=== PATIENT | male | born 1940 | race Caucasian/White ===

== ENCOUNTER 2019-08-07 12:50 | Day surgery (SDC) | payer MEDICARE, BC ==
[2019-08-06 14:28] VITALS: BMI 26.0
[~2019-08-07 12:50] MED LIST: EPINEPHrine 0.3 MG in Ophthalmic Irrigation Solution 500 ML IV SCH
[2019-08-07] MEDS ORDERED: Cyclopentolate 1% Opth Drop 2 ML BOT ONE (13:16)
[2019-08-07] MEDS ORDERED: Phenylephrine 2.5% Ophth Soln 5 ML BOT ONE (13:16)
--- NOTE | 2019-08-08 01:03 | OP ---
DATE OF PROCEDURE: 08/07/2019 PREOPERATIVE DIAGNOSIS: Dislocated intraocular lens, right eye. POSTOPERATIVE DIAGNOSIS: Dislocated intraocular lens, right eye. PROCEDURE: Intraocular lens repositioning, pars plana vitrectomy, membrane peel, right eye. ANESTHESIA: General endotracheal anesthesia. COMPLICATIONS: None. DESCRIPTION OF PROCEDURE: The patient was identified in the preoperative holding area. Appropriate informed consent for the planned surgical procedure on the right eye had been obtained. The patient was transported to the operative suite. Appropriate cardiopulmonary monitoring was established. Local anesthesia obtained using retrobulbar modified Van Lint lid block using 50:50 mixture of 4% lidocaine and 0.75% bupivacaine. The patient was prepped and draped in usual sterile manner for ophthalmic surgery of the right eye. Lid speculum was placed in the right eye. Infusion line was placed inferotemporally. Intra-ocular lens was positioned forward and captured on toned Prolene sutures at the 1 o'clock and 7 o'clock positions. This fixated the lens anteriorly. Pars plana vitrectomy was performed removing traction from the lens and the anterior vitreous. Prophylactic indirect laser was placed for a total of 169 spots. No holes, breaks, or tears were identified. Trocars were removed. The eye was noted to retain pressure well. Retrobulbar Kenalog and subconjunctival Ancef were placed. Antibiotic ointment was placed. Eye was patched and shielded. The patient awakened and taken to postoperative recovery unit in good condition having suffered no immediate perioperative complications. The patient was instructed to keep patch and shield on. Followup appointment with Dr. Curry. Job ID: [id number]
== END 2019-08-07 15:42 | disposition home or self-care (01) ==
LOC: SDC 12:50
PROVIDERS: ATTEND Ophthalmology Retina Specialist
PROC: 08SJ3ZZ Reposition Right Lens, Percutaneous Approach (ICD-10-PCS; principal; 2019-08-07)
DX: H27.121 Anterior dislocation of lens, right eye (principal)
CPT/HCPCS: J0171

== ENCOUNTER 2019-09-01 12:22 | Outpatient (CLI) | payer MEDICARE, BC ==
--- NOTE | 2019-09-01 16:48 | ULT ---
RIGHT LOWER EXTREMITY VENOUS DUPLEX ULTRASOUND WITH COLOR AND SPECTRAL DOPPLER IMAGING: History: Right leg pain. Comparison: 01-22-12 FINDINGS: Exam performed from groin to ankle including visualized greater saphenous, common femoral, superficia l femoral, profunda femoral, popliteal, trifurcation and posterior tibial vein regions. There is evidence for intraluminal thrombus and lack of compressibility and flow in the distal superf icial femoral vein, popliteal vein, and posterior tibial vein, evidence for deep venous thrombosis. T here is a somewhat complicated appearing somewhat thick walled fluid collection involving the distal medial thigh measuring 4.2 x 5.8 cm. In addition, there is a second complicated appearing fluid colle ction medial to the knee which measures approximately 3.3 x 5.6 cm. The etiology of these fluid colle ctions is not determined from this study. These could represent ganglion cysts or post-traumatic flui d collections. Consider follow up knee MRI for further assessment in this regard. IMPRESSION: 1. Evidence for DVT involving the right lower extremity including the distal superficial femoral vein , popliteal vein, and posterior tibial vein. 2. Two somewhat complicated appearing fluid collections, one involving the medial distal thigh and th e other one the medial knee, of uncertain etiology or significance as above. Follow up non-emergent k nee MRI in this regard is suggested. This could be performed on a with and without contrast basis for more definitive assessment of these two multiloculated complicated appearing cystic masses. 3. Findings were discussed with Dr. Cazares's nurse, Patito by Ashley Miller, the ultrasound technolo rust at 1:17 p.m. Code CR POS: [id number]
== END 2019-09-01 12:23 | disposition home or self-care (01) ==
LOC: ULT 12:22
PROVIDERS: ATTEND Internal Medicine
DX: I80.8 Phlebitis and thrombophlebitis of other sites (principal); I87.2 Venous insufficiency (chronic) (peripheral); I82.401 Acute embolism and thrombosis of unspecified deep veins of right lower extremity

== ENCOUNTER 2019-09-17 12:27 | Outpatient (CLI) | payer MEDICARE, BC ==
--- NOTE | 2019-09-17 14:10 | MRI ---
Exam: Right knee MRI with and without IV contrast: HISTORY: Abnormality of right knee, follow-up ultrasound, right knee pain There appear to be several very large multiloculated fluid collections involving the knee, incomplete ly visualized since the cranial-most extension of these abnormal fluid collections are not completely seen, they extend well up into the thigh. The more posterior collection measures approxima tely 6.3 x 9.8 cm in AP and transverse dimension and the more medial collection measures approximately 3.5 x 4.6 cm in transverse dimensions the craniocaudal dimension of the more posterior loculated fluid collection incompletely seen but measures at least 12.7 cm in craniocaudal dimension and the more anterior medial collection also incompletely seen but measures at least 7.9 cm in craniocaudal dimension. There is no evidence for solid enhancing masses. There is evidence for intraluminal thrombus within the portal vein evidence for deep venous thrombosis. 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 IMPRESSION: Evidence for intraluminal thrombus involving the popliteal vein evidence for deep venous thrombosis w hich was documented on the previous venous duplex ultrasound examination 09/01/2019 Very large multiloculated fluid collections incompletely seen in the more cranial aspect on this eval uation, they extend well up in the lower thigh. Etiology of these is uncertain, conceivably they could be related to prior knee replacement. There is no evidence for associated solid enhancing mass.
== END 2019-09-17 12:28 | disposition home or self-care (01) ==
LOC: MRI 12:27
PROVIDERS: ATTEND Internal Medicine
DX: I82.431 Acute embolism and thrombosis of right popliteal vein (principal); R93.6 Abnormal findings on diagnostic imaging of limbs; M71.21 Synovial cyst of popliteal space [Baker], right knee; M79.604 Pain in right leg

== ENCOUNTER 2019-10-14 12:09 | Outpatient (CLI) | payer MEDICARE, BC ==
[2019-10-14] MEDS ORDERED: Iopamidol 370 76% 100 ML VIAL ONE (12:57)
--- NOTE | 2019-10-14 13:03 | CT ---
CT ABDOMEN AND PELVIS WITH IV CONTRAST 10/14/2019 CLINICAL INFORMATION: Right lower extremity swelling for one month. Increase in inguinal lymphadenopathy COMPARISON: CTA chest and abdomen on 01/21/2012. Technique: Multiple contiguous axial CT images are obtained through the abdomen and pelvis with IV contrast. Cor onal reformatted images are provided. FINDINGS: Lower Chest: Minimal linear bibasilar atelectasis versus scarring is present. Vessels: Vascular calcifications are seen in the abdominal aorta and involving the iliac arteries. Abdomen: Portal vein:Patent Gallbladder: Within normal limits for CT imaging. Liver: within normal limits. Spleen: within normal limits. Pancreas: Mild atrophy but otherwise normal CT appearance. Adrenals: A small 1 cm fat density lesion is seen in the right adrenal gland also present on prior st udy probably due to small myolipoma. The left adrenal gland has a normal CT appearance. Kidneys: within normal limits. Bowel: Thickening involving the ascending colon. However, the colon is decompressed which may account for this finding. Appendix: The appendix is visualized and normal in caliber. Peritoneum: No ascites or free air; no fluid collection. Mesentery and Retroperitoneum: No enlarged mesenteric or retroperitoneal lymph nodes. Abdominal Wall: A fat-containing right inguinal canal is present. Small bilateral hydroceles are visu alized. Pelvis: Reproductive Organs: No pelvic masses. Pelvis: No lymphadenopathy is seen. Specifically, there is no mass or lymphadenopathy seen in the ing uinal regions bilaterally. Bladder: Decompressed but otherwise grossly within normal limits. Bones: Multilevel degenerative changes in the lumbar spine similar to prior exam. IMPRESSION: 1. Fat-containing right inguinal canal suggestive of a fat-containing right inguinal hernia. There is no lymphadenopathy seen in either inguinal region and no mass is seen. 2. Small bilateral hydroceles. 3. Appearance of thickening of the ascending colon probably attributable to incomplete distention. Ho wever colonoscopy would be more sensitive for evaluation of the colon. 4. Small right adrenal myelolipoma.
--- NOTE | 2019-10-14 13:43 | ULT ---
RIGHT LOWER EXTREMITY DOPPLER VENOUS ULTRASOUND PROVIDED CLINICAL HISTORY: History of right lower extremity DVT. TECHNIQUE: Grayscale and color Doppler sonography with spectral analysis was performed of the right common femor al, femoral, popliteal, posterior tibial, greater saphenous and profunda femoral veins. FINDINGS: Comparison is made with a prior right lower extremity DVT ultrasound dated 09/01/2019. There is persi stent occlusive thrombus within the right popliteal vein. The posterior tibial vein and distal superficial femoral vein appear patent now. There is normal compression, flow and augmentation seen w ithin the right common femoral vein, right greater saphenous vein and right profunda femoral vein. The complex fluid collection seen within the distal right thigh posterior to the knee did not appear appreciably changed from the comparison exam. These are not fully assessed. IMPRESSION: 1. Persistent occlusive thrombus within the right popliteal vein. Recanalization of the distal right superficial femoral vein and posterior tibial vein. 2. Persistent large fluid collections within the distal right thigh and posterior knee. These were i ncompletely included in the [id number] on an MR examination dated 09/17/2019. As a conservative measure would recommend a followup MRI of the right leg with and without contrast to evaluate the ful l extent of these fluid collections. Transcribed Date/Time: 10/14/2019 1:47 PM
== END 2019-10-14 12:10 | disposition home or self-care (01) ==
LOC: CT 12:09
PROVIDERS: ATTEND Internal Medicine
DX: I87.2 Venous insufficiency (chronic) (peripheral) (principal); R59.0 Localized enlarged lymph nodes; N43.3 Hydrocele, unspecified; D17.71 Benign lipomatous neoplasm of kidney; I82.431 Acute embolism and thrombosis of right popliteal vein; I82.411 Acute embolism and thrombosis of right femoral vein; I82.441 Acute embolism and thrombosis of right tibial vein; Z86.718 Personal history of other venous thrombosis and embolism
CPT/HCPCS: 36415; 74177; 80053; 85007; 85027; Q9967

== ENCOUNTER 2023-09-04 02:22 | Inpatient (IN) | payer MEDICARE, BC ==
[2023-09-04 04:56] VITALS: BMI 207483.7
[2023-09-04] MEDS ORDERED: Ondansetron PF 4 MG/2 ML Vial IVP PRN (05:01)
[2023-09-04] MEDS ORDERED: Ondansetron ODT 4 MG TAB PO PRN (05:01)
[2023-09-04] MEDS ORDERED: Acetaminophen 325 MG TAB PO PRN (05:01)
[2023-09-04] MEDS ORDERED: Acetaminophen 650 MG Suppository PR PRN (05:01)
[2023-09-04] MEDS ORDERED: Lorazepam 2 MG/ML VIAL SLOW IVP PRN (05:03)
[2023-09-04 05:46] LABS: Hematocrit 34.2 % (42.0-52.0); Hemoglobin 11.7 g/dL (14.0-18.0); Manual Diff?? YES; Mean Corpuscular HGB CONC 34.2 g/dL (32.0-36.0); Mean Corpuscular Hemoglobin 32.1 pg (27.0-31.0); Mean Platelet Volume 11.1 fL (7.4-10.4); Platelet Count 114 10x3/uL (130-400); RBC Distribution Width 14.6 % (11.5-14.5); Red Blood Cell (RBC) Count 3.64 mill/uL (4.70-6.10); White Blood Cell (WBC) Count 3.8 10x3/uL (4.8-10.8)
[2023-09-04 05:51] LABS: Delete Auto Diff?? YES
[2023-09-04 06:06] LABS: Anion Gap 13 mmol/L (10-20); BUN (Urea Nitrogen) 19 mg/dL (8.4-25.7); Calc. Creatinine Clearance 71 mL/min (70-130); Carbon Dioxide 29 mmol/L (23-31); Chloride 102 mmol/L (98-107); Estimated GFR 89; Glucose 90 mg/dL (83-110); Potassium 3.4 mmol/L (3.5-5.1); Sodium 141 mmol/L (136-145)
[2023-09-04 06:09] LABS: Band 4 % (5-11); CellaVision Operator ID LAB.CLH1; Hypochromia SLIGHT = 6-15 cells HPF (0-5); Lymphocytes 27 % (21-51); Monocytes 17 % (0-10); Neutrophil 49 % (42-75); Platelet Adequacy Comment Platelets Decreased; Polychromasia SLIGHT = 2-3 cells HPF (0-2); Reactive Lymphocytes 3 % (0-10); Total Cell Count 100
[2023-09-04] MEDS ORDERED: Electrolyte Replacement Protocol 1 EACH FS SCH (06:15)
[2023-09-04] MEDS ORDERED: Potassium Chloride 20 MEQ TAB PO SCH (06:30)
[2023-09-04] MEDS ORDERED: Dextrose 5% in Water 1,000 ML IV PRN (06:54)
[2023-09-04] MEDS ORDERED: Dextrose 50% Abboject 50 ML SYRINGE SLOW IVP PRN (06:54)
[2023-09-04] MEDS ORDERED: Glucagon 1 MG/ML KIT IM PRN (06:54)
[2023-09-04] MEDS ORDERED: HumaLOG 300 UNITS/3 ML VIAL SC PRN (06:54)
[2023-09-04] MEDS ORDERED: Magnesium 2 GM/50 ML(in water) 2 GM in Premix Bag 1 BAG IVPB SCH (08:00)
[2023-09-04] MEDS: Aspirin 81 mg Enteric Coated Tablet PO SCH (08:40)
[2023-09-04] MEDS: Tamsulosin HCl 0.4 MG CAP PO SCH (08:40)
[2023-09-04] MEDS: Carvedilol 6.25 MG TAB PO SCH ×2 (08:40→20:47)
[2023-09-04] MEDS: metFORMIN 500 MG TAB PO SCH ×2 (08:40→20:47)
[2023-09-04] MEDS: Amiodarone 200 MG TAB PO SCH (08:41)
[2023-09-04] MEDS ORDERED: Divalproex Sodium 250 MG ER.TAB PO SCH (11:15)
[2023-09-04 13:26] LABS: Potassium 3.7 mmol/L (3.5-5.1)
[2023-09-04] MEDS ORDERED: HYDROcodone/Acetaminophen 10/325 mg Tablet PO PRN (17:01)
[2023-09-04] MEDS: Artificial Tear Sol 15 ML BOT EA EYE PRN (17:54)
[2023-09-04] MEDS ORDERED: cefTRIAXone\\ROCEPHIN 1 GM in Sodium Chloride 0.9% 100 ML IVPB SCH (18:30)
[2023-09-04] MEDS: Atorvastatin Calcium 20 MG TAB PO SCH (20:47)
[2023-09-04] MEDS: Pregabalin 50 MG CAP PO SCH (20:47)
[2023-09-05 07:09] LABS: Magnesium 1.4 mg/dL (1.6-2.6)
[2023-09-05 07:40] LABS: #Monocytes 0.8 thou/uL (0.11-0.59); #Neutrophils 1.9 thou/uL (1.40-6.50); %Basophils 0.2 % (0.0-1.0); %Eosinophils 0.7 % (0.0-10.0); %Lymphocytes 33.7 % (21.0-51.0); %Neutrophils 45.7 % (42.0-75.0); Hematocrit 36.8 % (42.0-52.0); Hemoglobin 12.4 g/dL (14.0-18.0); Mean Corpuscular HGB CONC 33.7 g/dL (32.0-36.0); Mean Corpuscular Hemoglobin 31.5 pg (27.0-31.0); Mean Corpuscular Volume 93.4 fl (78.0-98.0); Mean Platelet Volume 11.2 fL (7.4-10.4); Platelet Count 116 10x3/uL (130-400); RBC Distribution Width 14.6 % (11.5-14.5); Red Blood Cell (RBC) Count 3.94 mill/uL (4.70-6.10); White Blood Cell (WBC) Count 4.1 10x3/uL (4.8-10.8)
[2023-09-05 07:56] LABS: ALT (SGPT) 29 U/L (8-55); AST (SGOT) 41 U/L (5-34); Alkaline Phosphatase 102 U/L (40-110); Anion Gap 18 mmol/L (10-20); BUN (Urea Nitrogen) 14 mg/dL (8.4-25.7); Bilirubin, Total 0.3 mg/dL (0.2-1.2); Calc. Creatinine Clearance 67 mL/min (70-130); Calcium 9.5 mg/dL (7.8-10.44); Carbon Dioxide 25 mmol/L (23-31); Chloride 102 mmol/L (98-107); Estimated GFR 87; Globulin 2.5 g/dL (2.4-3.5); Glucose 142 mg/dL (83-110); Potassium 3.6 mmol/L (3.5-5.1); Protein, Total 6.5 g/dL (5.8-8.1); Sodium 141 mmol/L (136-145)
[2023-09-05] MEDS ORDERED: Magnesium Sulfate In Water 4 GM in Premix Bag 1 BAG IVPB SCH (09:00)
[2023-09-05] MEDS: Carvedilol 6.25 MG TAB PO SCH ×2 (09:40→20:34)
[2023-09-05] MEDS: Tamsulosin HCl 0.4 MG CAP PO SCH (09:40)
[2023-09-05] MEDS: metFORMIN 500 MG TAB PO SCH ×2 (09:40→20:26)
[2023-09-05] MEDS: Aspirin 81 mg Enteric Coated Tablet PO SCH (09:40)
[2023-09-05] MEDS: Amiodarone 200 MG TAB PO SCH (09:41)
[2023-09-05] MEDS: cefTRIAXone\\ROCEPHIN 1 GM in Sodium Chloride 0.9% 100 ML IVPB SCH (17:53)
[2023-09-05] MEDS: Atorvastatin Calcium 20 MG TAB PO SCH (20:27)
[2023-09-05] MEDS: Divalproex Sodium 250 MG ER.TAB PO SCH (20:27)
[2023-09-05] MEDS: Pregabalin 50 MG CAP PO SCH (20:27)
[2023-09-06 09:13] LABS: Magnesium 1.3 mg/dL (1.6-2.6)
[2023-09-06] MEDS: Carvedilol 6.25 MG TAB PO SCH ×2 (10:34→21:23)
[2023-09-06] MEDS: Tamsulosin HCl 0.4 MG CAP PO SCH (10:34)
[2023-09-06] MEDS: Amiodarone 200 MG TAB PO SCH (10:36)
[2023-09-06] MEDS: metFORMIN 500 MG TAB PO SCH ×2 (10:36→21:24)
[2023-09-06] MEDS: Aspirin 81 mg Enteric Coated Tablet PO SCH (10:36)
[2023-09-06] MEDS ORDERED: Magnesium Sulfate In Water 4 GM in Premix Bag 1 BAG IVPB SCH (11:00)
[2023-09-06] MEDS: cefTRIAXone\\ROCEPHIN 1 GM in Sodium Chloride 0.9% 100 ML IVPB SCH (17:56)
[2023-09-06] MEDS: Divalproex Sodium 250 MG ER.TAB PO SCH (21:21)
[2023-09-06] MEDS: Atorvastatin Calcium 20 MG TAB PO SCH (21:23)
[2023-09-06] MEDS: Senokot S 8.6-50 MG TAB PO SCH (21:23)
[2023-09-06] MEDS: Pregabalin 50 MG CAP PO SCH (22:35)
[2023-09-07 04:34] LABS: Magnesium 1.8 mg/dL (1.6-2.6)
[2023-09-07] MEDS ORDERED: Vancomycin 1 GM in Premix Bag 1 BAG IVPB SCH (05:00)
[2023-09-07] MEDS ORDERED: Magnesium 2 GM/50 ML(in water) 2 GM in Premix Bag 1 BAG IVPB SCH (08:00)
[2023-09-07] MEDS ORDERED: Polyethylene Glycol 3350 17 GM Packet PO SCH (09:00)
[2023-09-07] MEDS: Aspirin 81 mg Enteric Coated Tablet PO SCH (09:28)
[2023-09-07] MEDS: metFORMIN 500 MG TAB PO SCH (09:28)
[2023-09-07] MEDS: Carvedilol 6.25 MG TAB PO SCH (09:28)
[2023-09-07] MEDS: Tamsulosin HCl 0.4 MG CAP PO SCH (09:28)
[2023-09-07] MEDS: Senokot S 8.6-50 MG TAB PO SCH (09:28)
[2023-09-07] MEDS: Amiodarone 200 MG TAB PO SCH (09:29)
[2023-09-07] MEDS: Artificial Tear Sol 15 ML BOT EA EYE PRN (09:29)
[2023-09-07 11:37] VITALS: BP 176/94; TEMP 97.8
== END 2023-09-07 16:00 | disposition home or self-care (01) | DRG 690 ==
LOC: 2SE 02:52 → OBSVTOIN 09-05 16:20
PROVIDERS: ADMIT Student in an Organized Health Care Education/Training Program; ATTEND Internal Medicine
PROC: 4A00X4Z Measurement of Central Nervous Electrical Activity, External Approach (ICD-10-PCS; principal; 2023-09-04)
DX: N39.0 Urinary tract infection, site not specified (principal); G93.40 Encephalopathy, unspecified; I25.10 Atherosclerotic heart disease of native coronary artery without angina pectoris; E78.5 Hyperlipidemia, unspecified; I10 Essential (primary) hypertension; F32.A Depression, unspecified; Z98.890 Other specified postprocedural states; Z88.1 Allergy status to other antibiotic agents; Z88.5 Allergy status to narcotic agent; Z79.899 Other long term (current) drug therapy; Z79.82 Long term (current) use of aspirin; Z79.84 Long term (current) use of oral hypoglycemic drugs; R56.9 Unspecified convulsions; Z90.89 Acquired absence of other organs; Z82.49 Family history of ischemic heart disease and other diseases of the circulatory system
CPT/HCPCS: 36415; 36416; 70450; 70551; 71045; 80048; 80053; 80164; 80306; 81001; 82550; 83735; 84484; 85025; 87086; 93005; 93306; 93880; 95711; 95819; 95957; 96374; 96375; C1785; C1898; G0378; J0696; J3370-JW; J3475; J3490

== ENCOUNTER 2023-09-09 03:42 | Inpatient (IN) | payer MEDICARE, BC ==
[2023-09-09 04:38] LABS: #Monocytes 3.2 thou/uL (0.11-0.59); #Neutrophils 12.7 thou/uL (1.40-6.50); %Basophils 0.1 % (0.0-1.0); %Eosinophils 0.1 % (0.0-10.0); %Monocytes 19.1 % (0.0-10.0); %Neutrophils 74.9 % (42.0-75.0); Hematocrit 39.9 % (42.0-52.0); Hemoglobin 13.7 g/dL (14.0-18.0); Mean Corpuscular HGB CONC 34.3 g/dL (32.0-36.0); Mean Corpuscular Hemoglobin 32.2 pg (27.0-31.0); Mean Corpuscular Volume 93.9 fl (78.0-98.0); Mean Platelet Volume 11.4 fL (7.4-10.4); RBC Distribution Width 14.6 % (11.5-14.5); Red Blood Cell (RBC) Count 4.25 mill/uL (4.70-6.10)
[2023-09-09] MEDS ORDERED: Acetaminophen 325 MG TAB ONE (04:51)
[2023-09-09 05:09] LABS: ALT (SGPT) 45 U/L (8-55); AST (SGOT) 66 U/L (5-34); Albumin 4.2 g/dL (3.4-4.8); Alkaline Phosphatase 118 U/L (40-110); Anion Gap 17 mmol/L (10-20); BUN (Urea Nitrogen) 15 mg/dL (8.4-25.7); Bilirubin, Total 0.6 mg/dL (0.2-1.2); Calc. Creatinine Clearance 0 mL/min (70-130); Carbon Dioxide 24 mmol/L (23-31); Chloride 102 mmol/L (98-107); Estimated GFR 85; Globulin 2.7 g/dL (2.4-3.5); Glucose 156 mg/dL (83-110); Potassium 4.5 mmol/L (3.5-5.1); Protein, Total 6.9 g/dL (5.8-8.1); Sodium 138 mmol/L (136-145)
[2023-09-09 05:30] LABS: Platelet Count 134 10x3/uL (130-400)
[2023-09-09] MEDS ORDERED: Vancomycin 1 GM/200 ML (FROZEN) BAG ONE (05:32)
[2023-09-09] MEDS ORDERED: Meropenem 1 GM in Sodium Chloride 0.9% 100 ML IVPB SCH (06:00)
[2023-09-09 06:32] LABS: Bacteria/HPF None Seen HPF (None Seen); Bilirubin Negative (Negative); Blood, Urine Negative (Negative); CAUTI Indications for Culture Alt mental st,lethar; Clarity Clear (Clear); Glucose, Urine (Dipstick) Normal (Negative); Ketone, Urine Negative (Negative); Leukocyte Negative Leu/uL (Negative); Nitrite Negative (Negative); Protein, Urine (Dipstick) Negative (Neg-Trace); Specific Gravity, Urine 1.026 (1.002-1.036); Squamous Epithelial 0-3 HPF (0-3); Urobilinogen Normal mg/dL (Less than 2); WBC/HPF 0-3 HPF (0-3); pH, Urine 6.5 (5.0-9.0)
[2023-09-09 06:35] LABS: Urine Culture Reflex No No
[2023-09-09 06:38] LABS: SARS-CoV-2 NAA Rapid Test Not Detected (NotDetected)
[2023-09-09 07:50] LABS: Lactic Acid 1.9 mmol/L (0.5-2.2)
[2023-09-09] MEDS ORDERED: Iopamidol 370 76% 100 ML VIAL ONE (08:54)
[2023-09-09 09:07] VITALS: BMI 21.5
[2023-09-09] MEDS ORDERED: Electrolyte Replacement Protocol 1 EACH FS SCH (10:15)
[2023-09-09] MEDS ORDERED: Acetaminophen 325 MG TAB PO PRN (10:16)
[2023-09-09] MEDS ORDERED: Acetaminophen 650 MG Suppository PR PRN (10:16)
[2023-09-09] MEDS ORDERED: Glucagon 1 MG/ML KIT IM PRN (10:18)
[2023-09-09] MEDS ORDERED: Dextrose 50% Abboject 50 ML SYRINGE SLOW IVP PRN (10:18)
[2023-09-09] MEDS ORDERED: Dextrose 5% in Water 1,000 ML IV PRN (10:18)
[2023-09-09] MEDS ORDERED: HumaLOG 300 UNITS/3 ML VIAL SC PRN ×2 (10:18)
[2023-09-09] MEDS ORDERED: VANCOMYCIN IVPB PRN (10:34)
[2023-09-09] MEDS ORDERED: Electrolyte Replacement Protocol FS PRN (10:45)
[2023-09-09] MEDS: Meropenem 1 GM in Sodium Chloride 0.9% 100 ML IVPB SCH ×2 (14:47→21:54)
[2023-09-09] MEDS: Vancomycin HCl 750 MG in Sodium Chloride 0.9% 250 ML 250 ML IVPB SCH ×3 (18:55→22:23)
[2023-09-09] MEDS ORDERED: Vancomycin 1 GM in Sodium Chloride 0.9% 250 ML 300 ML IVPB SCH (21:00)
[2023-09-09] MEDS: HYDROcodone/Acetaminophen 10/325 mg Tablet PO PRN (21:52)
[2023-09-09] MEDS: Atorvastatin Calcium 20 MG TAB PO SCH (21:53)
[2023-09-09] MEDS: Pregabalin 50 MG CAP PO SCH (22:14)
[2023-09-10 04:30] LABS: Hematocrit 33.6 % (42.0-52.0); Hemoglobin 11.5 g/dL (14.0-18.0); Manual Diff?? YES; Mean Corpuscular HGB CONC 34.2 g/dL (32.0-36.0); Mean Corpuscular Hemoglobin 32.2 pg (27.0-31.0); Mean Corpuscular Volume 94.1 fl (78.0-98.0); Mean Platelet Volume 11.6 fL (7.4-10.4); Platelet Count 92 10x3/uL (130-400); RBC Distribution Width 14.9 % (11.5-14.5); Red Blood Cell (RBC) Count 3.57 mill/uL (4.70-6.10); White Blood Cell (WBC) Count 6.7 10x3/uL (4.8-10.8)
[2023-09-10 04:31] LABS: Delete Auto Diff?? YES
[2023-09-10 05:00] LABS: ALT (SGPT) 46 U/L (8-55); AST (SGOT) 63 U/L (5-34); Albumin 3.6 g/dL (3.4-4.8); Alkaline Phosphatase 99 U/L (40-110); Anion Gap 13 mmol/L (10-20); BUN (Urea Nitrogen) 15 mg/dL (8.4-25.7); Bilirubin, Total 0.3 mg/dL (0.2-1.2); Calc. Creatinine Clearance 74 mL/min (70-130); Calcium 8.7 mg/dL (7.8-10.44); Carbon Dioxide 26 mmol/L (23-31); Chloride 104 mmol/L (98-107); Estimated GFR 89; Globulin 2.3 g/dL (2.4-3.5); Glucose 98 mg/dL (83-110); Magnesium 1.6 mg/dL (1.6-2.6); Potassium 3.5 mmol/L (3.5-5.1); Protein, Total 5.9 g/dL (5.8-8.1); Sodium 139 mmol/L (136-145)
[2023-09-10 05:02] LABS: Band 1 % (5-11); CellaVision Operator ID lab.abc; Lymphocytes 10 % (21-51); Monocytes 12 % (0-10); Neutrophil 77 % (42-75); Platelet Adequacy Comment Platelets Decreased; Polychromasia SLIGHT = 2-3 cells HPF (0-2); RBC Morphology Within Normal Limits; Smudge Cells 6.9 %; Total Cell Count 101
[2023-09-10] MEDS: Meropenem 1 GM in Sodium Chloride 0.9% 100 ML IVPB SCH ×3 (05:55→22:36)
[2023-09-10] MEDS ORDERED: Potassium Chloride 20 MEQ TAB PO SCH (08:00)
[2023-09-10] MEDS ORDERED: Carvedilol 6.25 MG TAB PO SCH (08:00)
[2023-09-10] MEDS ORDERED: Magnesium 2 GM/50 ML(in water) 2 GM in Premix 1 BAG IVPB SCH (08:00)
[2023-09-10] MEDS ORDERED: FLU VACC QS2023(65UP)/MF59C/PF 60 MCG/0.5 ML SYRINGE IM ONE (09:00)
[2023-09-10] MEDS: Amiodarone 200 MG TAB PO SCH (09:26)
[2023-09-10] MEDS: Tamsulosin HCl 0.4 MG CAP PO SCH (09:27)
[2023-09-10] MEDS: Venlafaxine HCl XR 150 MG CAP PO SCH (09:27)
[2023-09-10] MEDS: BuPROPion XL 150 MG ER.TAB PO SCH (09:27)
[2023-09-10] MEDS: Aspirin 81 mg Enteric Coated Tablet PO SCH (09:27)
[2023-09-10] MEDS: Losartan 25 MG TAB PO SCH (09:27)
[2023-09-10] MEDS: Vancomycin HCl 750 MG in Sodium Chloride 0.9% 250 ML 250 ML IVPB SCH (10:38)
[2023-09-10] MEDS: HYDROcodone/Acetaminophen 10/325 mg Tablet PO PRN (18:26)
[2023-09-10 22:08] LABS: Vancomycin, Trough 8.2 ug/mL
[2023-09-10] MEDS: Pregabalin 50 MG CAP PO SCH (22:37)
[2023-09-10] MEDS: Carvedilol 6.25 MG TAB PO SCH (22:44)
[2023-09-10] MEDS: Vancomycin (BATCH) 1.25 GM in Premix 1 BAG IVPB SCH (22:44)
[2023-09-10] MEDS: Divalproex Sodium 250 MG ER.TAB PO SCH (22:45)
[2023-09-10] MEDS: metFORMIN 500 MG TAB PO SCH (22:46)
[2023-09-10] MEDS: Atorvastatin Calcium 20 MG TAB PO SCH (22:46)
[2023-09-10] MEDS ORDERED: Vancomycin 1 GM in Premix 1 BAG IVPB SCH (23:00)
[2023-09-11] MEDS: Vancomycin HCl 750 MG in Sodium Chloride 0.9% 250 ML 250 ML IVPB SCH (01:16)
[2023-09-11 04:26] LABS: Hematocrit 30.8 % (42.0-52.0); Hemoglobin 10.4 g/dL (14.0-18.0); Manual Diff?? YES; Mean Corpuscular HGB CONC 33.8 g/dL (32.0-36.0); Mean Corpuscular Hemoglobin 31.9 pg (27.0-31.0); Mean Corpuscular Volume 94.5 fl (78.0-98.0); Mean Platelet Volume 11.8 fL (7.4-10.4); Red Blood Cell (RBC) Count 3.26 mill/uL (4.70-6.10); White Blood Cell (WBC) Count 3.2 10x3/uL (4.8-10.8)
[2023-09-11 04:53] LABS: Anion Gap 12 mmol/L (10-20); BUN (Urea Nitrogen) 14 mg/dL (8.4-25.7); Calc. Creatinine Clearance 71 mL/min (70-130); Calcium 8.6 mg/dL (7.8-10.44); Carbon Dioxide 25 mmol/L (23-31); Chloride 107 mmol/L (98-107); Estimated GFR 88; Glucose 88 mg/dL (83-110); Sodium 140 mmol/L (136-145)
[2023-09-11 05:06] LABS: Delete Auto Diff?? YES; Platelet Count 80 10x3/uL (130-400)
[2023-09-11] MEDS: Meropenem 1 GM in Sodium Chloride 0.9% 100 ML IVPB SCH ×2 (06:24→13:13)
[2023-09-11 06:30] LABS: Anisocytosis SLIGHT = 6-15 cells HPF (0-5); Band 8 % (5-11); CellaVision Operator ID LAB.JMM; Eosinophils 2 % (0-10); Lymphocytes 16 % (21-51); Macrocytosis SLIGHT = 6-15 cells HPF (0-5); Monocytes 24 % (0-10); Neutrophil 49 % (42-75); Ovalocytes SLIGHT = 2-5 cells HPF (0-1); Platelet Adequacy Comment Platelets Decreased; Total Cell Count 100
[2023-09-11] MEDS: Losartan 25 MG TAB PO SCH (11:25)
[2023-09-11] MEDS: dilTIAZem CD 120 MG CAP PO SCH (11:25)
[2023-09-11] MEDS: Aspirin 81 mg Enteric Coated Tablet PO SCH (11:26)
[2023-09-11] MEDS: Amiodarone 200 MG TAB PO SCH (11:26)
[2023-09-11] MEDS: BuPROPion XL 150 MG ER.TAB PO SCH (11:26)
[2023-09-11] MEDS: Venlafaxine HCl XR 150 MG CAP PO SCH (11:26)
[2023-09-11] MEDS: Carvedilol 6.25 MG TAB PO SCH ×2 (11:26→21:11)
[2023-09-11] MEDS: Tamsulosin HCl 0.4 MG CAP PO SCH (11:26)
[2023-09-11] MEDS: metFORMIN 500 MG TAB PO SCH ×2 (11:26→21:12)
[2023-09-11] MEDS: Vancomycin (BATCH) 1.25 GM in Premix 1 BAG IVPB SCH ×2 (11:39→23:30)
[2023-09-11] MEDS ORDERED: LevoFLOXacin 750 mg/D5W 750 MG in Premix 1 BAG IVPB SCH (18:00)
[2023-09-11] MEDS ORDERED: cefTRIAXone\\ROCEPHIN 1 GM in Sodium Chloride 0.9% 100 ML IVPB SCH (18:00)
[2023-09-11] MEDS: Pregabalin 50 MG CAP PO SCH (21:09)
[2023-09-11] MEDS: Atorvastatin Calcium 20 MG TAB PO SCH (21:11)
[2023-09-11] MEDS: HYDROcodone/Acetaminophen 10/325 mg Tablet PO PRN (21:11)
[2023-09-11] MEDS: Divalproex Sodium 250 MG ER.TAB PO SCH (21:12)
[2023-09-12] MEDS: HYDROcodone/Acetaminophen 10/325 mg Tablet PO PRN ×2 (01:23→15:21)
[2023-09-12 04:09] LABS: Hematocrit 28.3 % (42.0-52.0); Hemoglobin 9.4 g/dL (14.0-18.0); Manual Diff?? YES; Mean Corpuscular HGB CONC 33.2 g/dL (32.0-36.0); Mean Corpuscular Hemoglobin 31.4 pg (27.0-31.0); Mean Corpuscular Volume 94.6 fl (78.0-98.0); Mean Platelet Volume 11.5 fL (7.4-10.4); Platelet Count 94 10x3/uL (130-400); RBC Distribution Width 15.3 % (11.5-14.5); Red Blood Cell (RBC) Count 2.99 mill/uL (4.70-6.10); White Blood Cell (WBC) Count 2.6 10x3/uL (4.8-10.8)
[2023-09-12 04:32] LABS: Delete Auto Diff?? YES
[2023-09-12 04:36] LABS: Anion Gap 13 mmol/L (10-20); BUN (Urea Nitrogen) 12 mg/dL (8.4-25.7); Calc. Creatinine Clearance 77 mL/min (70-130); Calcium 8.2 mg/dL (7.8-10.44); Carbon Dioxide 24 mmol/L (23-31); Chloride 107 mmol/L (98-107); Estimated GFR 90; Glucose 90 mg/dL (83-110); Potassium 3.9 mmol/L (3.5-5.1); Sodium 140 mmol/L (136-145)
[2023-09-12 05:05] LABS: CellaVision Operator ID lab.abc; Eosinophils 1 % (0-10); Large Platelets 9.7 % (0-5); Lymphocytes 29 % (21-51); Monocytes 19 % (0-10); Myelocyte 1 % (0-0); Neutrophil 50 % (42-75); Platelet Adequacy Comment Platelets Decreased; RBC Morphology Within Normal Limits; Smudge Cells 7.8 %; Total Cell Count 103
[2023-09-12] MEDS: dilTIAZem CD 120 MG CAP PO SCH (08:20)
[2023-09-12] MEDS: Tamsulosin HCl 0.4 MG CAP PO SCH (08:20)
[2023-09-12] MEDS: Venlafaxine HCl XR 150 MG CAP PO SCH (08:20)
[2023-09-12] MEDS: BuPROPion XL 150 MG ER.TAB PO SCH (08:20)
[2023-09-12] MEDS: Losartan 25 MG TAB PO SCH (08:20)
[2023-09-12] MEDS: metFORMIN 500 MG TAB PO SCH ×2 (08:20→20:22)
[2023-09-12] MEDS: Aspirin 81 mg Enteric Coated Tablet PO SCH (08:21)
[2023-09-12] MEDS: Carvedilol 6.25 MG TAB PO SCH ×2 (08:21→20:23)
[2023-09-12] MEDS: Amiodarone 200 MG TAB PO SCH (08:21)
[2023-09-12] MEDS: Atorvastatin Calcium 20 MG TAB PO SCH (20:23)
[2023-09-12] MEDS: Divalproex Sodium 250 MG ER.TAB PO SCH (20:39)
[2023-09-12] MEDS ORDERED: Pregabalin 50 MG CAP PO SCH (21:00)
[2023-09-13 04:47] LABS: Hematocrit 29.8 % (42.0-52.0); Manual Diff?? YES; Mean Corpuscular HGB CONC 33.6 g/dL (32.0-36.0); Mean Corpuscular Hemoglobin 31.5 pg (27.0-31.0); Mean Platelet Volume 11.5 fL (7.4-10.4); Platelet Count 106 10x3/uL (130-400); RBC Distribution Width 15.3 % (11.5-14.5); Red Blood Cell (RBC) Count 3.17 mill/uL (4.70-6.10)
[2023-09-13 05:11] LABS: Delete Auto Diff?? YES
[2023-09-13 05:14] LABS: Anion Gap 10 mmol/L (10-20); BUN (Urea Nitrogen) 11 mg/dL (8.4-25.7); Calc. Creatinine Clearance 78 mL/min (70-130); Calcium 8.6 mg/dL (7.8-10.44); Carbon Dioxide 27 mmol/L (23-31); Chloride 105 mmol/L (98-107); Estimated GFR 90; Glucose 78 mg/dL (83-110); Magnesium 1.5 mg/dL (1.6-2.6); Potassium 3.9 mmol/L (3.5-5.1); Sodium 138 mmol/L (136-145)
[2023-09-13 06:14] LABS: Anisocytosis SLIGHT = 6-15 cells HPF (0-5); Band 13 % (5-11); CellaVision Operator ID LAB.JMM; Eosinophils 1 % (0-10); Large Platelets 5.9 % (0-5); Lymphocytes 32 % (21-51); Macrocytosis SLIGHT = 6-15 cells HPF (0-5); Monocytes 27 % (0-10); Myelocyte 1 % (0-0); Neutrophil 27 % (42-75); Ovalocytes SLIGHT = 2-5 cells HPF (0-1); Platelet Adequacy Comment Platelets Decreased; Smudge Cells 12.9 %; Total Cell Count 101
[2023-09-13] MEDS: HYDROcodone/Acetaminophen 10/325 mg Tablet PO PRN (06:44)
[2023-09-13] MEDS ORDERED: Magnesium 2 GM/50 ML(in water) 2 GM in Premix 1 BAG IVPB SCH (07:00)
[2023-09-13 07:22] VITALS: BP 153/73; TEMP 98.1
[2023-09-13] MEDS: Carvedilol 6.25 MG TAB PO SCH (08:22)
[2023-09-13] MEDS: Venlafaxine HCl XR 150 MG CAP PO SCH (08:22)
[2023-09-13] MEDS: Tamsulosin HCl 0.4 MG CAP PO SCH (08:22)
[2023-09-13] MEDS: Losartan 25 MG TAB PO SCH (08:22)
[2023-09-13] MEDS: metFORMIN 500 MG TAB PO SCH (08:22)
[2023-09-13] MEDS: BuPROPion XL 150 MG ER.TAB PO SCH (08:22)
[2023-09-13] MEDS: dilTIAZem CD 120 MG CAP PO SCH (08:22)
[2023-09-13] MEDS: Aspirin 81 mg Enteric Coated Tablet PO SCH (08:22)
[2023-09-13] MEDS: Amiodarone 200 MG TAB PO SCH (08:23)
== END 2023-09-13 11:25 | disposition home or self-care (01) | DRG 871 ==
LOC: ERS 03:42 → ERHOLD 07:56 → 2NO 18:28
PROVIDERS: ADMIT Internal Medicine; ATTEND Internal Medicine
PROC: 3E03329 Introduction of Other Anti-infective into Peripheral Vein, Percutaneous Approach (ICD-10-PCS; principal; 2023-09-09)
PROC: 0T9B70Z Drainage of Bladder with Drainage Device, Via Natural or Artificial Opening (ICD-10-PCS; 2023-09-09)
PROC: 4A00X4Z Measurement of Central Nervous Electrical Activity, External Approach (ICD-10-PCS; 2023-09-11)
DX: A41.89 Other specified sepsis (principal); G93.41 Metabolic encephalopathy; N39.0 Urinary tract infection, site not specified; Z88.8 Allergy status to other drugs, medicaments and biological substances; Z88.5 Allergy status to narcotic agent; Z79.82 Long term (current) use of aspirin; Z79.899 Other long term (current) drug therapy; Z79.84 Long term (current) use of oral hypoglycemic drugs; I25.10 Atherosclerotic heart disease of native coronary artery without angina pectoris; E78.5 Hyperlipidemia, unspecified; I10 Essential (primary) hypertension; Z88.1 Allergy status to other antibiotic agents; F32.A Depression, unspecified; Z90.89 Acquired absence of other organs; Z96.659 Presence of unspecified artificial knee joint; Z98.890 Other specified postprocedural states; Z82.49 Family history of ischemic heart disease and other diseases of the circulatory system; Z20.822 Contact with and (suspected) exposure to COVID-19; G40.909 Epilepsy, unspecified, not intractable, without status epilepticus; R31.29 Other microscopic hematuria; I48.0 Paroxysmal atrial fibrillation; Z95.5 Presence of coronary angioplasty implant and graft; Z79.4 Long term (current) use of insulin; F39 Unspecified mood [affective] disorder; D72.821 Monocytosis (symptomatic)
CPT/HCPCS: 36415; 36416; 51702; 71045; 71260; 80048; 80053; 80164; 80202; 81001; 83605; 83735; 85025; 87040; 87086; 95711; 95819; 95957; 96361; 96365; 96367; J0696; J1650; J1815; J2185; J3370; J3370-JW; J3475; J3490; J7050; Q9967; U0002

== ENCOUNTER 2023-10-31 02:31 | Inpatient (IN) | payer MEDICARE, BC ==
[2023-10-31 03:56] LABS: Hematocrit 33.5 % (42.0-52.0); Hemoglobin 11.3 g/dL (14.0-18.0); Manual Diff?? YES; Mean Corpuscular HGB CONC 33.7 g/dL (32.0-36.0); Mean Corpuscular Hemoglobin 31.6 pg (27.0-31.0); Mean Corpuscular Volume 93.6 fl (78.0-98.0); Mean Platelet Volume 10.9 fL (7.4-10.4); Platelet Count 118 10x3/uL (130-400); RBC Distribution Width 15.1 % (11.5-14.5); Red Blood Cell (RBC) Count 3.58 mill/uL (4.70-6.10); White Blood Cell (WBC) Count 3.3 10x3/uL (4.8-10.8)
[2023-10-31 04:01] LABS: Delete Auto Diff?? YES
[2023-10-31] MEDS ORDERED: Magnesium 2 GM/50 ML BAG (IN WATER) ONE (04:02)
[2023-10-31 04:09] LABS: INR-International Normal Ratio 1.2; PTT 38.4 sec (22.9-36.1); Prothrombin Time 15.8 sec (12.0-14.7)
[2023-10-31 04:18] LABS: ALT (SGPT) 53 U/L (8-55); AST (SGOT) 49 U/L (5-34); Acetaminophen Less than 10 mcg/mL (10.0-30.0); Albumin 3.5 g/dL (3.4-4.8); Alcohol Less than 10.0 mg/dL (Less than 10); Alkaline Phosphatase 149 U/L (40-110); Anion Gap 19 mmol/L (10-20); BUN (Urea Nitrogen) 19 mg/dL (8.4-25.7); Bilirubin, Total 0.7 mg/dL (0.2-1.2); Calc. Creatinine Clearance 0 mL/min (70-130); Calcium 7.7 mg/dL (7.8-10.44); Carbon Dioxide 21 mmol/L (23-31); Chloride 102 mmol/L (98-107); Estimated GFR 43; Globulin 2.7 g/dL (2.4-3.5); Glucose 72 mg/dL (83-110); Potassium 2.7 mmol/L (3.5-5.1); Protein, Total 6.2 g/dL (5.8-8.1); Salicylate Less than 8.0 mg/dL (15.0-30.0); Sodium 139 mmol/L (136-145)
[2023-10-31 04:26] LABS: Anisocytosis SLIGHT = 6-15 cells HPF (0-5); Band 4 % (5-11); CellaVision Operator ID lab.sh2; Large Platelets 7.1 % (0-5); Lymphocytes 27 % (21-51); Macrocytosis SLIGHT = 6-15 cells HPF (0-5); Monocytes 13 % (0-10); Neutrophil 56 % (42-75); Ovalocytes SLIGHT = 2-5 cells HPF (0-1); Platelet Adequacy Comment Platelets Decreased; Polychromasia SLIGHT = 2-3 cells HPF (0-2); Smudge Cells 15.2 %; Tear Drops SLIGHT = 2-5 cells HPF (0-1); Total Cell Count 99
[2023-10-31 04:28] LABS: Troponin I 0.015 ng/mL (< 0.028)
[2023-10-31] MEDS ORDERED: Potassium Chloride 20 MEQ/100 ML PREMIX BAG ONE (04:44)
[2023-10-31 04:47] LABS: Magnesium 1.4 mg/dL (1.6-2.6)
[2023-10-31 05:13] LABS: Amphetamine Not Detected (NotDetected); Barbiturates Screen Not Detected (NotDetected); Benzodiazepine Screen Not Detected (NotDetected); Cocaine Metabolite Screen Not Detected (NotDetected); Methadone Not Detected (NotDetected); Methamphetamine Not Detected (NotDetected); Opiate Screen Detected (NotDetected); Oxycodone Screen Not Detected (NotDetected); Phencyclidine (PCP) Not Detected (NotDetected); THC/Cannabinoid Screen Not Detected (NotDetected); Tricyclic Screen Not Detected (NotDetected)
[2023-10-31 05:17] LABS: Bacteria/HPF None Seen HPF (None Seen); Bilirubin Negative (Negative); Blood, Urine Negative (Negative); CAUTI Indications for Culture Alt mental st,lethar; Clarity Clear (Clear); Glucose, Urine (Dipstick) Normal (Negative); Ketone, Urine Negative (Negative); Leukocyte Negative Leu/uL (Negative); Nitrite Negative (Negative); Protein, Urine (Dipstick) Negative (Neg-Trace); RBC/HPF 0-3 HPF (0-3); Specific Gravity, Urine 1.006 (1.002-1.036); Squamous Epithelial 0-3 HPF (0-3); Urobilinogen Normal mg/dL (Less than 2); WBC/HPF 0-3 HPF (0-3)
[2023-10-31 05:19] LABS: Urine Culture Reflex No No
[2023-10-31] MEDS ORDERED: Dextrose 5% in Water 1,000 ML IV PRN (08:41)
[2023-10-31] MEDS ORDERED: Glucagon 1 MG/ML KIT IM PRN (08:41)
[2023-10-31] MEDS ORDERED: Acetaminophen 325 MG TAB PO PRN (08:41)
[2023-10-31] MEDS ORDERED: HumaLOG 300 UNITS/3 ML VIAL SC PRN ×2 (08:41)
[2023-10-31] MEDS ORDERED: Senokot S 8.6-50 MG TAB PO PRN (08:41)
[2023-10-31] MEDS ORDERED: Dextrose 50% Abboject 50 ML SYRINGE SLOW IVP PRN (08:41)
[2023-10-31] MEDS ORDERED: Bisacodyl 5 MG TAB PO PRN (08:41)
[2023-10-31] MEDS ORDERED: Bisacodyl 10 MG SUPP PR PRN (08:41)
[2023-10-31] MEDS ORDERED: Lactated Ringer's 1,000 ML IV SCH (08:45)
[2023-10-31] MEDS ORDERED: Potassium Chloride 20 MEQ TAB PO SCH (09:00)
[2023-10-31] MEDS ORDERED: Amiodarone 200 MG TAB PO SCH (09:00)
[2023-10-31 09:39] LABS: Free T4 (Free Thyroxine) 1.12 ng/dL (0.70-1.48)
[2023-10-31] MEDS ORDERED: Potassium Chloride 20 MEQ TAB ONE (11:47)
[2023-10-31] MEDS ORDERED: Losartan 25 MG TAB ONE (11:48)
[2023-10-31] MEDS ORDERED: Aspirin Chewable 81 MG TAB ONE (11:48)
[2023-10-31] MEDS ORDERED: Famotidine 20 MG TAB ONE (11:48)
[2023-10-31] MEDS ORDERED: Carvedilol 6.25 MG TAB ONE (11:48)
[2023-10-31] MEDS: dilTIAZem CD 120 MG CAP PO SCH (12:05)
[2023-10-31] MEDS: Aspirin 81 mg Enteric Coated Tablet PO SCH (12:05)
[2023-10-31] MEDS: Carvedilol 6.25 MG TAB PO SCH ×2 (12:05→21:33)
[2023-10-31] MEDS: Tamsulosin HCl 0.4 MG CAP PO SCH (12:06)
[2023-10-31] MEDS: Famotidine 20 MG TAB PO SCH (12:06)
[2023-10-31] MEDS: Losartan 25 MG TAB PO SCH (12:06)
[2023-10-31 13:24] VITALS: BMI 21.3
[2023-10-31 13:53] LABS: Potassium 3.2 mmol/L (3.5-5.1)
[2023-10-31] MEDS: Lactated Ringer's 1,000 ML IV SCH (18:14)
[2023-10-31] MEDS: metFORMIN 500 MG TAB PO SCH (18:14)
[2023-10-31] MEDS: Atorvastatin Calcium 20 MG TAB PO SCH (21:32)
[2023-11-01 04:38] LABS: #Monocytes 0.7 thou/uL (0.11-0.59); #Neutrophils 1.8 thou/uL (1.40-6.50); %Basophils 0.3 % (0.0-1.0); %Eosinophils 0.3 % (0.0-10.0); %Lymphocytes 28.9 % (21.0-51.0); %Monocytes 19.7 % (0.0-10.0); %Neutrophils 49.4 % (42.0-75.0); Hematocrit 33.3 % (42.0-52.0); Hemoglobin 11.3 g/dL (14.0-18.0); Mean Corpuscular HGB CONC 33.9 g/dL (32.0-36.0); Mean Corpuscular Hemoglobin 31.2 pg (27.0-31.0); Mean Platelet Volume 10.9 fL (7.4-10.4); Platelet Count 124 10x3/uL (130-400); RBC Distribution Width 14.9 % (11.5-14.5); Red Blood Cell (RBC) Count 3.62 mill/uL (4.70-6.10); White Blood Cell (WBC) Count 3.6 10x3/uL (4.8-10.8)
[2023-11-01 05:03] LABS: Anion Gap 13 mmol/L (10-20); BUN (Urea Nitrogen) 8 mg/dL (8.4-25.7); Calc. Creatinine Clearance 77 mL/min (70-130); Calcium 8.5 mg/dL (7.8-10.44); Carbon Dioxide 27 mmol/L (23-31); Chloride 104 mmol/L (98-107); Estimated GFR 90; Glucose 76 mg/dL (83-110); Potassium 3.3 mmol/L (3.5-5.1); Sodium 141 mmol/L (136-145)
[2023-11-01] MEDS: Lactated Ringer's 1,000 ML IV SCH (05:27)
[2023-11-01] MEDS: Amiodarone 200 MG TAB PO SCH (08:41)
[2023-11-01] MEDS: metFORMIN 500 MG TAB PO SCH ×2 (08:41→16:24)
[2023-11-01] MEDS: dilTIAZem CD 120 MG CAP PO SCH (08:42)
[2023-11-01] MEDS: Carvedilol 6.25 MG TAB PO SCH ×2 (08:42→21:03)
[2023-11-01] MEDS: Famotidine 20 MG TAB PO SCH (08:42)
[2023-11-01] MEDS: Aspirin 81 mg Enteric Coated Tablet PO SCH (08:42)
[2023-11-01] MEDS: Tamsulosin HCl 0.4 MG CAP PO SCH (08:43)
[2023-11-01] MEDS: Losartan 25 MG TAB PO SCH (08:43)
[2023-11-01] MEDS ORDERED: Divalproex Sodium 500 MG ER.TAB PO SCH (12:15)
[2023-11-01] MEDS ORDERED: Divalproex Sodium 250 MG ER.TAB PO SCH ×2 (12:15→21:00)
[2023-11-01] MEDS: Pregabalin 50 MG CAP PO SCH (21:00)
[2023-11-01] MEDS ORDERED: Atorvastatin Calcium 20 MG TAB PO SCH (21:15)
[2023-11-02 04:20] LABS: Hematocrit 34.1 % (42.0-52.0); Hemoglobin 11.8 g/dL (14.0-18.0); Manual Diff?? YES; Mean Corpuscular HGB CONC 34.6 g/dL (32.0-36.0); Mean Corpuscular Hemoglobin 31.7 pg (27.0-31.0); Mean Corpuscular Volume 91.7 fl (78.0-98.0); Mean Platelet Volume 11.3 fL (7.4-10.4); Platelet Count 128 10x3/uL (130-400); Red Blood Cell (RBC) Count 3.72 mill/uL (4.70-6.10); White Blood Cell (WBC) Count 4.3 10x3/uL (4.8-10.8)
[2023-11-02 04:52] LABS: Anion Gap 13 mmol/L (10-20); BUN (Urea Nitrogen) 8 mg/dL (8.4-25.7); Calc. Creatinine Clearance 87 mL/min (70-130); Calcium 8.3 mg/dL (7.8-10.44); Carbon Dioxide 28 mmol/L (23-31); Chloride 103 mmol/L (98-107); Estimated GFR 93; Glucose 87 mg/dL (83-110); Potassium 2.9 mmol/L (3.5-5.1); Sodium 141 mmol/L (136-145)
[2023-11-02 05:33] LABS: Delete Auto Diff?? YES
[2023-11-02 06:33] LABS: Anisocytosis MODERATE=16-30 cells HPF (0-5); Band 9 % (5-11); CellaVision Operator ID LAB.JMM; Large Platelets 10.4 % (0-5); Lymphocytes 26 % (21-51); Macrocytosis SLIGHT = 6-15 cells HPF (0-5); Monocytes 23 % (0-10); Neutrophil 43 % (42-75); Platelet Adequacy Comment Platelets Decreased; Smudge Cells 13.9 %; Total Cell Count 115
[2023-11-02] MEDS ORDERED: Electrolyte Replacement Protocol 1 EACH FS SCH (07:15)
[2023-11-02 07:54] LABS: Magnesium 1.1 mg/dL (1.6-2.6); Phosphorus 2.5 mg/dL (2.3-4.7)
[2023-11-02] MEDS ORDERED: Magnesium Sulfate In Water 4 GM in Premix 1 BAG IVPB SCH (08:30)
[2023-11-02] MEDS ORDERED: BuPROPion XL 150 MG ER.TAB PO SCH (09:00)
[2023-11-02] MEDS: BuPROPion XL 150 MG ER.TAB PO SCH (09:26)
[2023-11-02] MEDS: Losartan 25 MG TAB PO SCH (09:26)
[2023-11-02] MEDS: Carvedilol 6.25 MG TAB PO SCH ×2 (09:26→20:49)
[2023-11-02] MEDS: Potassium Chloride 20 MEQ TAB PO SCH ×2 (09:26→12:03)
[2023-11-02] MEDS: Tamsulosin HCl 0.4 MG CAP PO SCH (09:26)
[2023-11-02] MEDS: Aspirin 81 mg Enteric Coated Tablet PO SCH (09:27)
[2023-11-02] MEDS: Amiodarone 200 MG TAB PO SCH (09:27)
[2023-11-02] MEDS: Venlafaxine HCl XR 75 MG CAP PO SCH (09:27)
[2023-11-02] MEDS: dilTIAZem CD 120 MG CAP PO SCH (09:27)
[2023-11-02] MEDS: metFORMIN 500 MG TAB PO SCH ×2 (09:27→16:24)
[2023-11-02 17:30] LABS: Potassium 3.8 mmol/L (3.5-5.1)
[2023-11-02] MEDS: Pregabalin 50 MG CAP PO SCH (20:49)
[2023-11-02] MEDS: Atorvastatin Calcium 20 MG TAB PO SCH (20:49)
[2023-11-02] MEDS ORDERED: Divalproex Sodium 500 MG ER.TAB PO SCH (21:00)
[2023-11-03 04:47] LABS: Hematocrit 35.1 % (42.0-52.0); Hemoglobin 11.9 g/dL (14.0-18.0); Manual Diff?? YES; Mean Corpuscular HGB CONC 33.9 g/dL (32.0-36.0); Mean Corpuscular Hemoglobin 31.6 pg (27.0-31.0); Mean Corpuscular Volume 93.1 fl (78.0-98.0); Mean Platelet Volume 10.8 fL (7.4-10.4); Platelet Count 147 10x3/uL (130-400); RBC Distribution Width 15.2 % (11.5-14.5); Red Blood Cell (RBC) Count 3.77 mill/uL (4.70-6.10); White Blood Cell (WBC) Count 4.2 10x3/uL (4.8-10.8)
[2023-11-03 04:53] LABS: Delete Auto Diff?? YES
[2023-11-03 05:23] LABS: Phosphorus 2.3 mg/dL (2.3-4.7)
[2023-11-03 05:24] LABS: Anion Gap 10 mmol/L (10-20); BUN (Urea Nitrogen) 12 mg/dL (8.4-25.7); Calc. Creatinine Clearance 83 mL/min (70-130); Calcium 8.9 mg/dL (7.8-10.44); Carbon Dioxide 28 mmol/L (23-31); Chloride 106 mmol/L (98-107); Estimated GFR 92; Glucose 94 mg/dL (83-110); Magnesium 1.7 mg/dL (1.6-2.6); Potassium 3.8 mmol/L (3.5-5.1); Sodium 140 mmol/L (136-145)
[2023-11-03 05:29] LABS: CellaVision Operator ID lab.abc; Eosinophils 2 % (0-10); Large Platelets 9.8 % (0-5); Lymphocytes 22 % (21-51); Monocytes 15 % (0-10); Neutrophil 60 % (42-75); Nucleated RBC (Manual Ct) 1 % (0); Platelet Adequacy Comment Platelets Normal; RBC Morphology Within Normal Limits; Reactive Lymphocytes 2 % (0-10); Smudge Cells 13.7 %; Total Cell Count 102
[2023-11-03] MEDS ORDERED: Magnesium 2 GM/50 ML(in water) 2 GM in Premix 1 BAG IVPB SCH (08:00)
[2023-11-03 08:52] VITALS: TEMP 97.3
[2023-11-03] MEDS ORDERED: Pregabalin 50 MG CAP PO SCH ×2 (09:00→15:00)
[2023-11-03] MEDS: Tamsulosin HCl 0.4 MG CAP PO SCH (09:32)
[2023-11-03] MEDS: Amiodarone 200 MG TAB PO SCH (09:32)
[2023-11-03] MEDS: Venlafaxine HCl XR 75 MG CAP PO SCH (09:32)
[2023-11-03] MEDS: BuPROPion XL 150 MG ER.TAB PO SCH (09:33)
[2023-11-03] MEDS: metFORMIN 500 MG TAB PO SCH (09:33)
[2023-11-03] MEDS: Aspirin 81 mg Enteric Coated Tablet PO SCH (09:33)
[2023-11-03] MEDS: Carvedilol 6.25 MG TAB PO SCH (09:33)
[2023-11-03] MEDS: dilTIAZem CD 120 MG CAP PO SCH (09:33)
[2023-11-03] MEDS: Losartan 25 MG TAB PO SCH (09:33)
[2023-11-03 09:38] VITALS: BP 160/87
== END 2023-11-03 12:15 | disposition home or self-care (01) | DRG 100 ==
LOC: ERS 02:31 → ERHOLD 05:43 → 2SE 05:43 → OBSVTOIN 11-01 11:43
PROVIDERS: ADMIT Student in an Organized Health Care Education/Training Program; ATTEND Family Medicine
PROC: 4A10X4Z Monitoring of Central Nervous Electrical Activity, External Approach (ICD-10-PCS; principal; 2023-11-01)
DX: R56.9 Unspecified convulsions (principal); U07.1 COVID-19; N17.9 Acute kidney failure, unspecified; N30.00 Acute cystitis without hematuria; D61.818 Other pancytopenia; I25.10 Atherosclerotic heart disease of native coronary artery without angina pectoris; E87.6 Hypokalemia; E11.649 Type 2 diabetes mellitus with hypoglycemia without coma; I10 Essential (primary) hypertension; E83.42 Hypomagnesemia; E78.2 Mixed hyperlipidemia; F32.A Depression, unspecified; N40.0 Benign prostatic hyperplasia without lower urinary tract symptoms; G93.89 Other specified disorders of brain; I48.0 Paroxysmal atrial fibrillation; Z95.5 Presence of coronary angioplasty implant and graft; Z98.890 Other specified postprocedural states; Z90.49 Acquired absence of other specified parts of digestive tract; Z88.1 Allergy status to other antibiotic agents; Z88.5 Allergy status to narcotic agent; Z95.0 Presence of cardiac pacemaker; Z88.8 Allergy status to other drugs, medicaments and biological substances; Z79.82 Long term (current) use of aspirin; Z79.899 Other long term (current) drug therapy; Z79.84 Long term (current) use of oral hypoglycemic drugs; Z89.611 Acquired absence of right leg above knee
CPT/HCPCS: 36415; 36416; 70450; 71045; 80048; 80053; 80164; 80306; 80307; 81001; 82533; 83735; 83880; 84100; 84146; 84439; 84443; 84484; 85025; 85610; 85730; 87040; 93005; 95711; 95819; 96365; 96366; 96367; 96372; G0378; J1650; J3475; J3480; J7120

== ENCOUNTER 2025-07-12 14:04 | Inpatient (IN) | payer MEDICARE, BC ==
[~2025-07-12 14:04] MED LIST changes: -EPINEPHrine 0.3 MG in Ophthalmic Irrigation Solution 500 ML IV SCH; +Iopamidol 370 76% 100 ML VIAL ONE
[2025-07-12] MEDS ORDERED: Acetaminophen 500 MG TAB ONE (14:28)
[2025-07-12 14:38] LABS: Hematocrit 30.5 % (42.0-52.0); Hemoglobin 10.0 g/dL (14.0-18.0); Mean Corpuscular Hemoglobin 29.5 pg (27.0-31.0); Mean Corpuscular Volume 90.0 fL (78.0-98.0); Platelet Count 72 10x3/uL (130-400); Red Blood Cell (RBC) Count 3.39 mill/uL (4.70-6.10); White Blood Cell (WBC) Count 6.26 10x3/uL (4.8-10.8)
[2025-07-12 14:46] LABS: Actual Bicarbonate (HCO3v) 20.4 mEq/L (22-28); Base Excess -4.0 mEq/L (-2.0 to +3.0); Calcium, Ionized (venous) 1.09 mmol/L (1.16-1.32); Chloride (VBG) 104 mmol/L (98-106); Hematocrit-VBG 34 % (42.0-52.0); Hemoglobin (Hb) 11.5 g/dL (12.6-17.4); Potassium (VBG) 3.57 mmol/L (3.70-5.30); Sodium 138 mmol/L (133-146)
[2025-07-12 14:52] LABS: ALT (SGPT) 22 U/L (Less than 45); AST (SGOT) 42 U/L (11-34); Albumin 3.2 g/dL (3.1-4.5); Alkaline Phosphatase 129 U/L (40-110); Anion Gap 14 mmol/L (10-20); BUN (Urea Nitrogen) 17 mg/dL (8.4-25.7); Bilirubin, Total 1.6 mg/dL (0.3-1.2); Calc. Creatinine Clearance 0 mL/min (70-130); Calcium 8.2 mg/dL (7.8-10.44); Carbon Dioxide 21 mmol/L (23-31); Chloride 109 mmol/L (98-107); Globulin 2.7 g/dL (2.4-3.5); Glucose 120 mg/dL (83-110); Lipase 5 U/L (8-78); Magnesium 1.3 mg/dL (1.6-2.6); Potassium 3.6 mmol/L (3.5-5.1); Sodium 140 mmol/L (136-145)
[2025-07-12] MEDS ORDERED: Azithromycin 500 MG VIAL ONE (14:56)
[2025-07-12 15:00] LABS: Anisocytosis SLIGHT = 6-15 cells HPF (0-5); Platelet Adequacy Comment Platelets Decreased; Poikilocytosis SLIGHT = 6-15 cells HPF (0-5); Polychromasia SLIGHT = 2-3 cells HPF (0-2)
[2025-07-12] MEDS ORDERED: Bisacodyl 10 MG SUPP PR PRN (17:50)
[2025-07-12] MEDS ORDERED: Senokot S 8.6-50 MG TAB PO PRN (17:50)
[2025-07-12] MEDS ORDERED: Acetaminophen 325 MG TAB PO PRN (17:50)
[2025-07-12 17:59] LABS: CAUTI Indications for Culture Alt mental st,lethar; Glucose, Urine (Dipstick) Normal (Negative); Leukocyte 75 Leu/uL (Negative); Protein, Urine (Dipstick) 30 mg/dL (Neg-Trace); Specific Gravity, Urine 1.030 (1.002-1.036); WBC/HPF 21-50 HPF (0-3)
[2025-07-12 18:00] LABS: Bacteria/HPF 1+ HPF (None Seen)
[2025-07-12 18:01] LABS: Urine Culture Reflex Yes Yes
[2025-07-12] MEDS ORDERED: Pharmacy to Dose: VANC IVPB PRN (19:15)
[2025-07-12] MEDS ORDERED: Vancomycin (BATCH) 2.5 GM/500 ML BAG IVPB SCH (19:15)
[2025-07-12] MEDS ORDERED: Electrolyte Replacement Protocol 1 EACH FS SCH (19:30)
[2025-07-12] MEDS: Magnesium 2 GM/50 ML(in water) 2 GM in Premix 1 BAG IVPB SCH (20:32)
[2025-07-12] MEDS ORDERED: Vancomycin 1 GM in Premix 1 BAG IVPB SCH (21:00)
[2025-07-12] MEDS: Furosemide 20 MG (2 mL) VIAL SLOW IVP SCH (22:19)
[2025-07-12 22:41] LABS: Actual Bicarbonate (HCO3a) 19.9 mEq/L (22-28); Base Excess (BEa) -6.7 mEq/L (-2.0 to +3.0); CO2 Tension 44.0 mmHg (35.0-45.0); Calcium, Ionized (arterial) 1.17 mmol/L (1.12-1.30); Hematocrit-ABG 36 % (42.0-52.0); Hemoglobin (Hb) 12.1 g/dL (14.0-18.0); O2 Tension (PaO2), arterial 87.1 mmHg (> 60.0); Potassium - ABG Lab 4.31 mmol/L (3.70-5.30); pH, Arterial 7.273 (7.35-7.45)
[2025-07-12 22:42] LABS: ALV-art Gradient 29.020 mmHg (0-20); Puncture Site Left Radial artery
[2025-07-12] MEDS: Vancomycin (BATCH) 2.5 GM in Premix 1 BAG IVPB SCH (23:18)
[2025-07-12] MEDS: Furosemide 40 MG (4 mL) VIAL ONE (23:36)
[2025-07-13] MEDS: Magnesium 2 GM/50 ML(in water) 2 GM in Premix 1 BAG IVPB SCH ×2 (00:23→00:44)
[2025-07-13 04:58] LABS: Hematocrit 29.6 % (42.0-52.0); Hemoglobin 9.8 g/dL (14.0-18.0); Mean Corpuscular Hemoglobin 30.4 pg (27.0-31.0); Mean Corpuscular Volume 91.9 fL (78.0-98.0); Platelet Count 69 10x3/uL (130-400); Red Blood Cell (RBC) Count 3.22 mill/uL (4.70-6.10); White Blood Cell (WBC) Count 14.72 10x3/uL (4.8-10.8)
[2025-07-13 05:08] LABS: ALT (SGPT) 27 U/L (Less than 45); AST (SGOT) 54 U/L (11-34); Albumin 2.9 g/dL (3.1-4.5); Alkaline Phosphatase 118 U/L (40-110); Anion Gap 16 mmol/L (10-20); BUN (Urea Nitrogen) 20 mg/dL (8.4-25.7); Bilirubin, Direct 0.7 mg/dL (0.1-0.3); Bilirubin, Total 1.2 mg/dL (0.3-1.2); Calc. Creatinine Clearance 63 mL/min (70-130); Calcium 8.1 mg/dL (7.8-10.44); Carbon Dioxide 20 mmol/L (23-31); Chloride 109 mmol/L (98-107); Glucose 112 mg/dL (83-110); Magnesium 2.1 mg/dL (1.6-2.6); Potassium 3.5 mmol/L (3.5-5.1); Sodium 141 mmol/L (136-145)
[2025-07-13 07:07] LABS: Anisocytosis SLIGHT = 6-15 cells HPF (0-5); Macrocytosis SLIGHT = 6-15 cells HPF (0-5); Platelet Adequacy Comment Platelets Decreased; Polychromasia SLIGHT = 2-3 cells HPF (0-2); Smudge Cells 6.7 %
[2025-07-13] MEDS: Potassium Chloride 20 MEQ in Premix 1 BAG IVPB SCH (08:14)
[2025-07-13] MEDS: Vancomycin 1.5 GM / NS 500 ML VIAL-2-BAG IVPB SCH (11:20)
[2025-07-13 14:23] LABS: Potassium 4.1 mmol/L (3.5-5.1)
[2025-07-13] MEDS ORDERED: Pregabalin 50 MG CAP PO SCH (15:15)
[2025-07-13] MEDS: Pregabalin 50 MG CAP PO SCH ×2 (15:44→21:12)
[2025-07-13] MEDS: Furosemide 40 MG (4 mL) VIAL SLOW IVP SCH (16:58)
[2025-07-13] MEDS ORDERED: DULoxetine 30 MG CAP PO SCH (21:00)
[2025-07-13] MEDS: DULoxetine 30 MG CAP PO SCH (21:11)
[2025-07-14] MEDS: HYDROcodone/Acetaminophen 5/325 mg Tablet PO PRN (02:00)
[2025-07-14 06:11] VITALS: BMI 25.5
[2025-07-14 06:27] LABS: Anion Gap 12 mmol/L (10-20); BUN (Urea Nitrogen) 32 mg/dL (8.4-25.7); Calc. Creatinine Clearance 75 mL/min (70-130); Calcium 8.3 mg/dL (7.8-10.44); Carbon Dioxide 23 mmol/L (23-31); Chloride 111 mmol/L (98-107); Glucose 92 mg/dL (83-110); Magnesium 2.2 mg/dL (1.6-2.6); Potassium 3.4 mmol/L (3.5-5.1); Sodium 143 mmol/L (136-145)
[2025-07-14 06:57] LABS: Hematocrit 29.9 % (42.0-52.0); Hemoglobin 9.6 g/dL (14.0-18.0); Mean Corpuscular Hemoglobin 29.7 pg (27.0-31.0); Mean Corpuscular Volume 92.6 fL (78.0-98.0); Platelet Count 89 10x3/uL (130-400); Red Blood Cell (RBC) Count 3.23 mill/uL (4.70-6.10); White Blood Cell (WBC) Count 9.07 10x3/uL (4.8-10.8)
[2025-07-14 07:48] LABS: Anisocytosis SLIGHT = 6-15 cells HPF (0-5); Burr Cells MODERATE= 6-15 cells HPF (0-1); Platelet Adequacy Comment Platelets Decreased; Poikilocytosis SLIGHT = 6-15 cells HPF (0-5); Smudge Cells 5.0 %
[2025-07-14] MEDS: Amiodarone 200 MG TAB PO SCH (08:02)
[2025-07-14] MEDS: Potassium Chloride 20 MEQ in Premix 1 BAG IVPB SCH (08:03)
[2025-07-14] MEDS ORDERED: Non-Formulary Item 1 EACH (Pregabalin [Lyrica] 200 MG Capsule) PO SCH (09:00)
[2025-07-14] MEDS: Pregabalin 50 MG CAP PO SCH (14:20)
[2025-07-14] MEDS: Carvedilol 6.25 MG TAB PO SCH (16:48)
[2025-07-14] MEDS: Senokot S 8.6-50 MG TAB PO SCH (20:24)
[2025-07-14] MEDS: Losartan 25 MG TAB PO SCH (20:24)
[2025-07-15 06:41] LABS: Hematocrit 29.8 % (42.0-52.0); Hemoglobin 9.5 g/dL (14.0-18.0); Mean Corpuscular Hemoglobin 29.7 pg (27.0-31.0); Mean Corpuscular Volume 93.1 fL (78.0-98.0); Platelet Count 96 10x3/uL (130-400); Red Blood Cell (RBC) Count 3.20 mill/uL (4.70-6.10); White Blood Cell (WBC) Count 5.08 10x3/uL (4.8-10.8)
[2025-07-15 07:21] LABS: Anion Gap 14 mmol/L (10-20); BUN (Urea Nitrogen) 26 mg/dL (8.4-25.7); Calc. Creatinine Clearance 89 mL/min (70-130); Calcium 8.3 mg/dL (7.8-10.44); Carbon Dioxide 24 mmol/L (23-31); Chloride 111 mmol/L (98-107); Glucose 106 mg/dL (83-110); Magnesium 1.9 mg/dL (1.6-2.6); Potassium 3.8 mmol/L (3.5-5.1); Sodium 145 mmol/L (136-145)
[2025-07-15 07:56] LABS: Anisocytosis SLIGHT = 6-15 cells HPF (0-5); Burr Cells MODERATE= 6-15 cells HPF (0-1); Platelet Adequacy Comment Platelets Decreased; Polychromasia SLIGHT = 2-3 cells HPF (0-2); Smudge Cells 5.9 %; Target Cells SLIGHT = 2-5 cells HPF (0-1)
[2025-07-15] MEDS: Magnesium 2 GM/50 ML(in water) 2 GM in Premix 1 BAG IVPB SCH (09:26)
[2025-07-15] MEDS: Aspirin 81 mg Enteric Coated Tablet PO SCH (09:30)
[2025-07-15] MEDS: Azithromycin 250 MG TAB PO SCH (14:47)
[2025-07-15] MEDS: cefTRIAXone\\ROCEPHIN 2 GM in Sodium Chloride 0.9% 100 ML IVPB SCH (14:48)
[2025-07-15] MEDS: Milk Of Magnesia 30 ML UDCUP PO SCH (16:50)
[2025-07-16 08:21] LABS: #Basophils Less than 0.03 10x3/uL (0.0-0.2); #Eosinophils 0.04 10x3/uL (0.0-0.7); #Monocytes 0.53 10x3/uL (0.11-0.59); #Neutrophils 2.08 10x3/uL (1.40-6.50); %Basophils 0.3 % (0.0-1.0); %Eosinophils 1.2 % (0.0-10.0); %Lymphocytes 20.6 % (21.0-51.0); %Monocytes 15.4 % (0.0-10.0); %Neutrophils 60.2 % (42.0-75.0); Hematocrit 33.5 % (42.0-52.0); Hemoglobin 10.7 g/dL (14.0-18.0); Mean Corpuscular Hemoglobin 29.2 pg (27.0-31.0); Mean Corpuscular Volume 91.5 fL (78.0-98.0); Platelet Count 100 10x3/uL (130-400); Red Blood Cell (RBC) Count 3.66 mill/uL (4.70-6.10); White Blood Cell (WBC) Count 3.45 10x3/uL (4.8-10.8)
[2025-07-16 08:30] LABS: Anion Gap 12 mmol/L (10-20); BUN (Urea Nitrogen) 17 mg/dL (8.4-25.7); Calc. Creatinine Clearance 115 mL/min (70-130); Calcium 8.5 mg/dL (7.8-10.44); Carbon Dioxide 24 mmol/L (23-31); Chloride 109 mmol/L (98-107); Glucose 120 mg/dL (83-110); Potassium 3.9 mmol/L (3.5-5.1); Sodium 141 mmol/L (136-145)
[2025-07-16] MEDS: Azithromycin 250 MG TAB PO SCH (09:15)
[2025-07-16 09:21] LABS: Anisocytosis SLIGHT = 6-15 cells HPF (0-5); Ovalocytes SLIGHT = 2-5 cells HPF (0-1); Platelet Adequacy Comment Platelets Decreased; Polychromasia SLIGHT = 2-3 cells HPF (0-2); Schistocytes SLIGHT = 2-5 cells HPF (0-1)
[2025-07-16] MEDS: diphenhydrAMINE 50 MG/ML VIAL IVP SCH (17:45)
[2025-07-17 06:03] LABS: Hematocrit 33.5 % (42.0-52.0); Hemoglobin 11.0 g/dL (14.0-18.0); Mean Corpuscular Hemoglobin 29.5 pg (27.0-31.0); Mean Corpuscular Volume 89.8 fL (78.0-98.0); Platelet Count 99 10x3/uL (130-400); Red Blood Cell (RBC) Count 3.73 mill/uL (4.70-6.10); White Blood Cell (WBC) Count 1.72 10x3/uL (4.8-10.8)
[2025-07-17 06:06] LABS: #Basophils Less than 0.03 10x3/uL (0.0-0.2); #Eosinophils Less than 0.03 10x3/uL (0.0-0.7); #Monocytes 0.12 10x3/uL (0.11-0.59); #Neutrophils 1.01 10x3/uL (1.40-6.50); %Basophils 0.0 % (0.0-1.0); %Eosinophils 0.0 % (0.0-10.0); %Lymphocytes 26.4 % (21.0-51.0); %Monocytes 7.4 % (0.0-10.0); %Neutrophils 61.9 % (42.0-75.0)
[2025-07-17 06:21] LABS: Anion Gap 8 mmol/L (10-20); BUN (Urea Nitrogen) 16 mg/dL (8.4-25.7); Calc. Creatinine Clearance 111 mL/min (70-130); Calcium 8.5 mg/dL (7.8-10.44); Carbon Dioxide 23 mmol/L (23-31); Chloride 112 mmol/L (98-107); Glucose 156 mg/dL (83-110); Potassium 4.2 mmol/L (3.5-5.1); Sodium 139 mmol/L (136-145)
[2025-07-17 16:03] VITALS: BMI 25.5
[2025-07-18 05:39] LABS: Anion Gap 13 mmol/L (10-20); BUN (Urea Nitrogen) 23 mg/dL (8.4-25.7); Calc. Creatinine Clearance 88 mL/min (70-130); Calcium 8.6 mg/dL (7.8-10.44); Carbon Dioxide 23 mmol/L (23-31); Chloride 109 mmol/L (98-107); Glucose 147 mg/dL (83-110); Potassium 3.7 mmol/L (3.5-5.1); Sodium 141 mmol/L (136-145)
[2025-07-18 05:49] LABS: Hematocrit 31.6 % (42.0-52.0); Hemoglobin 10.4 g/dL (14.0-18.0); Mean Corpuscular Hemoglobin 29.8 pg (27.0-31.0); Mean Corpuscular Volume 90.5 fL (78.0-98.0); Platelet Count 152 10x3/uL (130-400); Red Blood Cell (RBC) Count 3.49 mill/uL (4.70-6.10); White Blood Cell (WBC) Count 6.65 10x3/uL (4.8-10.8)
[2025-07-18 06:20] LABS: Platelet Adequacy Comment Platelets Normal; Smudge Cells 7.8 %
[2025-07-18] MEDS: cefTRIAXone\\ROCEPHIN 1 GM in Sodium Chloride 0.9% 100 ML IVPB SCH (09:43)
[2025-07-18 12:00] VITALS: BP 121/54; TEMP 97.5
== END 2025-07-18 12:17 | disposition home or self-care (01) | DRG 871 ==
LOC: SUATTDRO 14:04 → ERS 14:04 → T4-A 17:53 → CCU 22:56 → T4-B 07-14 18:19
PROVIDERS: ADMIT Family Medicine; ATTEND Internal Medicine
PROC: 3E03329 Introduction of Other Anti-infective into Peripheral Vein, Percutaneous Approach (ICD-10-PCS; principal; 2025-07-12)
PROC: 4A033R1 Measurement of Arterial Saturation, Peripheral, Percutaneous Approach (ICD-10-PCS; principal; 2025-07-12)
PROC: 0T9B70Z Drainage of Bladder with Drainage Device, Via Natural or Artificial Opening (ICD-10-PCS; 2025-07-14)
DX: A41.51 Sepsis due to Escherichia coli [E. coli] (principal); G93.41 Metabolic encephalopathy; R65.21 Severe sepsis with septic shock; J81.0 Acute pulmonary edema; J18.9 Pneumonia, unspecified organism; N12 Tubulo-interstitial nephritis, not specified as acute or chronic; J90 Pleural effusion, not elsewhere classified; I25.10 Atherosclerotic heart disease of native coronary artery without angina pectoris; E78.5 Hyperlipidemia, unspecified; I10 Essential (primary) hypertension; E11.9 Type 2 diabetes mellitus without complications; I48.91 Unspecified atrial fibrillation; R94.31 Abnormal electrocardiogram [ECG] [EKG]; E83.42 Hypomagnesemia; I48.0 Paroxysmal atrial fibrillation; Z96.653 Presence of artificial knee joint, bilateral; G89.3 Neoplasm related pain (acute) (chronic); E87.8 Other disorders of electrolyte and fluid balance, not elsewhere classified; E87.6 Hypokalemia; K59.00 Constipation, unspecified; T36.1X5A Adverse effect of cephalosporins and other beta-lactam antibiotics, initial encounter; F32.A Depression, unspecified; Y92.238 Other place in hospital as the place of occurrence of the external cause; Z95.0 Presence of cardiac pacemaker; Z85.46 Personal history of malignant neoplasm of prostate; Z89.511 Acquired absence of right leg below knee; Z95.5 Presence of coronary angioplasty implant and graft; Z90.89 Acquired absence of other organs; Z88.8 Allergy status to other drugs, medicaments and biological substances; Z88.1 Allergy status to other antibiotic agents; Z88.5 Allergy status to narcotic agent; Z79.899 Other long term (current) drug therapy; Z79.84 Long term (current) use of oral hypoglycemic drugs; Z79.82 Long term (current) use of aspirin
CPT/HCPCS: 36415; 36600; 71045; 71275; 74018; 76705; 80048; 80053; 80076; 81001; 82805; 83036; 83605; 83690; 83735; 83880; 84443; 85025; 86141; 87040; 87077; 87086; 87149; 87186; 87426; 93005; 93010; 94660; 96365; 96366; 96367; 96368; J0456; J0696; J1100; J1200; J1335; J1940; J2183; J2185; J2270; J3373; J3475; J3480; J7030; Q9967

== ENCOUNTER 2025-10-10 21:29 | Inpatient (IN) | payer MEDICARE, BC ==
[2025-10-10 22:24] LABS: #Basophils Less than 0.03 10x3/uL (0.0-0.2); #Eosinophils Less than 0.03 10x3/uL (0.0-0.7); #Monocytes 1.72 10x3/uL (0.11-0.59); #Neutrophils 6.53 10x3/uL (1.40-6.50); %Basophils 0.1 % (0.0-1.0); %Eosinophils 0.2 % (0.0-10.0); %Lymphocytes 12.3 % (21.0-51.0); %Monocytes 18.0 % (0.0-10.0); %Neutrophils 68.4 % (42.0-75.0); Hematocrit 31.6 % (42.0-52.0); Hemoglobin 10.0 g/dL (14.0-18.0); Mean Corpuscular Hemoglobin 28.4 pg (27.0-31.0); Mean Corpuscular Volume 89.8 fL (78.0-98.0); Platelet Count 122 10x3/uL (130-400); Red Blood Cell (RBC) Count 3.52 mill/uL (4.70-6.10); White Blood Cell (WBC) Count 9.56 10x3/uL (4.8-10.8)
[2025-10-10 22:38] LABS: ALT (SGPT) 20 U/L (Less than 45); AST (SGOT) 56 U/L (11-34); Albumin 3.4 g/dL (3.1-4.5); Alkaline Phosphatase 137 U/L (40-110); Anion Gap 15 mmol/L (10-20); BUN (Urea Nitrogen) 11 mg/dL (8.4-25.7); Bilirubin, Total 0.7 mg/dL (0.3-1.2); Calc. Creatinine Clearance 0 mL/min (70-130); Calcium 8.4 mg/dL (7.8-10.44); Carbon Dioxide 25 mmol/L (23-31); Chloride 102 mmol/L (98-107); Globulin 3.7 g/dL (2.4-3.5); Glucose 126 mg/dL (83-110); Potassium 3.0 mmol/L (3.5-5.1); Sodium 139 mmol/L (136-145)
[2025-10-10] MEDS ORDERED: Vancomycin 1 GM/200 ML (FROZEN) BAG ONE ×2 (23:05→23:06)
[2025-10-11] MEDS ORDERED: Acetaminophen 500 MG TAB ONE (02:00)
[2025-10-11] MEDS ORDERED: Dextrose 50% Abboject 50 ML SYRINGE SLOW IVP PRN (02:15)
[2025-10-11] MEDS ORDERED: Guaifenesin DM 100-10/5 ML UDCUP PO PRN (02:15)
[2025-10-11] MEDS ORDERED: Senokot S 8.6-50 MG TAB PO PRN (02:15)
[2025-10-11] MEDS ORDERED: Ondansetron PF 4 MG/2 ML Vial IVP PRN (02:15)
[2025-10-11] MEDS ORDERED: Glucagon 1 MG/ML KIT IM PRN (02:15)
[2025-10-11] MEDS ORDERED: Calcium Carbonate 500 MG ChewTAB PO PRN (02:15)
[2025-10-11 05:30] LABS: #Basophils Less than 0.03 10x3/uL (0.0-0.2); #Eosinophils Less than 0.03 10x3/uL (0.0-0.7); #Monocytes 1.19 10x3/uL (0.11-0.59); #Neutrophils 4.39 10x3/uL (1.40-6.50); %Basophils 0.2 % (0.0-1.0); %Eosinophils 0.2 % (0.0-10.0); %Lymphocytes 13.5 % (21.0-51.0); %Monocytes 18.2 % (0.0-10.0); %Neutrophils 67.1 % (42.0-75.0); Hematocrit 28.8 % (42.0-52.0); Hemoglobin 9.4 g/dL (14.0-18.0); Mean Corpuscular Hemoglobin 28.3 pg (27.0-31.0); Mean Corpuscular Volume 86.7 fL (78.0-98.0); Platelet Count 94 10x3/uL (130-400); Red Blood Cell (RBC) Count 3.32 mill/uL (4.70-6.10); White Blood Cell (WBC) Count 6.53 10x3/uL (4.8-10.8)
[2025-10-11] MEDS: Nitroglycerin 2% Ointment 1 INCH/1 GM Packet TOP SCH (05:37)
[2025-10-11 05:46] LABS: CRP, High Sensitivity at Bryan 5.36 mg/dL (< or = 0.5)
[2025-10-11 05:49] LABS: Anion Gap 11 mmol/L (10-20); BUN (Urea Nitrogen) 8 mg/dL (8.4-25.7); CK (CPK) 70 U/L (30-200); Calc. Creatinine Clearance 0 mL/min (70-130); Calcium 7.9 mg/dL (7.8-10.44); Carbon Dioxide 25 mmol/L (23-31); Chloride 104 mmol/L (98-107); Glucose 115 mg/dL (83-110); Magnesium 1.5 mg/dL (1.6-2.6); Potassium 2.4 mmol/L (3.5-5.1); Sodium 138 mmol/L (136-145)
[2025-10-11 06:05] LABS: Bacteria/HPF None Seen HPF (None Seen); Glucose, Urine (Dipstick) Normal (Negative); Leukocyte Negative Leu/uL (Negative); Protein, Urine (Dipstick) Negative (Neg-Trace); RBC/HPF 0-3 HPF (0-3); Specific Gravity, Urine 1.025 (1.002-1.036); WBC/HPF 0-3 HPF (0-3)
[2025-10-11 06:06] VITALS: BMI 23.3
[2025-10-11 06:38] LABS: Influenza A by NAA Not Detected (NotDetected); Influenza B by NAA Not Detected (NotDetected); RSV by NAA Not Detected (NotDetected); SARS-CoV-2 NAA Rapid Test Not Detected (NotDetected)
[2025-10-11] MEDS: Magnesium 2 GM/50 ML(in water) 2 GM in Premix 1 BAG IVPB SCH (06:52)
[2025-10-11 09:42] LABS: Anion Gap 12 mmol/L (10-20); BUN (Urea Nitrogen) 9 mg/dL (8.4-25.7); Calc. Creatinine Clearance 80 mL/min (70-130); Calcium 7.9 mg/dL (7.8-10.44); Carbon Dioxide 25 mmol/L (23-31); Chloride 106 mmol/L (98-107); Glucose 108 mg/dL (83-110); Magnesium 2.9 mg/dL (1.6-2.6); Potassium 3.0 mmol/L (3.5-5.1); Sodium 140 mmol/L (136-145)
[2025-10-11] MEDS: Vancomycin 1 GM in Premix 1 BAG IVPB SCH (09:48)
[2025-10-11] MEDS: Enoxaparin 40 MG (0.4 mL) SYRINGE SC SCH (10:33)
[2025-10-11] MEDS: Aspirin 81 mg Enteric Coated Tablet PO SCH (10:57)
[2025-10-11] MEDS: Amiodarone 200 MG TAB PO SCH (10:57)
[2025-10-11] MEDS: Carvedilol 6.25 MG TAB PO SCH (10:58)
[2025-10-11] MEDS: Famotidine 20 MG TAB PO SCH (10:59)
[2025-10-11] MEDS: Losartan 25 MG TAB PO SCH (11:00)
[2025-10-11] MEDS: Pregabalin 50 MG CAP PO SCH (11:00)
[2025-10-11] MEDS: Magnesium Oxide 400 MG TAB PO SCH (11:03)
[2025-10-11] MEDS: Senokot S 8.6-50 MG TAB PO SCH (11:03)
[2025-10-11 11:07] LABS: Anion Gap 12 mmol/L (10-20); BUN (Urea Nitrogen) 8 mg/dL (8.4-25.7); Calc. Creatinine Clearance 93 mL/min (70-130); Calcium 7.8 mg/dL (7.8-10.44); Carbon Dioxide 25 mmol/L (23-31); Chloride 105 mmol/L (98-107); Glucose 130 mg/dL (83-110); Potassium 3.1 mmol/L (3.5-5.1); Sodium 139 mmol/L (136-145)
[2025-10-11] MEDS ORDERED: Iopamidol-370 76% 500 ML MDV (1 ML CHARGE) ONE (15:07)
[2025-10-11] MEDS: Clotrimazole 1 % Cream 30 GM TUBE TOP SCH (15:59)
[2025-10-11] MEDS: DULoxetine 30 MG CAP PO SCH (20:47)
[2025-10-12 03:51] LABS: #Basophils Less than 0.03 10x3/uL (0.0-0.2); #Eosinophils Less than 0.03 10x3/uL (0.0-0.7); #Monocytes 1.09 10x3/uL (0.11-0.59); #Neutrophils 2.85 10x3/uL (1.40-6.50); %Basophils 0.2 % (0.0-1.0); %Eosinophils 0.2 % (0.0-10.0); %Lymphocytes 20.4 % (21.0-51.0); %Monocytes 21.6 % (0.0-10.0); %Neutrophils 56.4 % (42.0-75.0); Hematocrit 29.3 % (42.0-52.0); Hemoglobin 9.3 g/dL (14.0-18.0); Mean Corpuscular Hemoglobin 28.2 pg (27.0-31.0); Mean Corpuscular Volume 88.8 fL (78.0-98.0); Platelet Count 98 10x3/uL (130-400); Red Blood Cell (RBC) Count 3.30 mill/uL (4.70-6.10); White Blood Cell (WBC) Count 5.05 10x3/uL (4.8-10.8)
[2025-10-12 04:03] LABS: ALT (SGPT) 15 U/L (Less than 45); AST (SGOT) 36 U/L (11-34); Albumin 2.8 g/dL (3.1-4.5); Alkaline Phosphatase 108 U/L (40-110); Anion Gap 11 mmol/L (10-20); BUN (Urea Nitrogen) 13 mg/dL (8.4-25.7); Bilirubin, Total 0.7 mg/dL (0.3-1.2); Calc. Creatinine Clearance 71 mL/min (70-130); Calcium 8.0 mg/dL (7.8-10.44); Carbon Dioxide 25 mmol/L (23-31); Chloride 107 mmol/L (98-107); Globulin 3.2 g/dL (2.4-3.5); Glucose 115 mg/dL (83-110); Magnesium 1.8 mg/dL (1.6-2.6); Potassium 3.0 mmol/L (3.5-5.1); Sodium 140 mmol/L (136-145)
[2025-10-12 04:09] LABS: Vancomycin, Random 16.2 ug/mL (See Comment)
[2025-10-12] MEDS: FLU (Fluad Triv) 25-26 (65UP)PF 45 MCG/0.5 ML Syringe IM ONE (08:55)
[2025-10-13 04:35] LABS: Anion Gap 13 mmol/L (10-20); BUN (Urea Nitrogen) 16 mg/dL (8.4-25.7); Calc. Creatinine Clearance 87 mL/min (70-130); Calcium 8.5 mg/dL (7.8-10.44); Carbon Dioxide 24 mmol/L (23-31); Chloride 112 mmol/L (98-107); Glucose 133 mg/dL (83-110); Potassium 3.7 mmol/L (3.5-5.1); Sodium 145 mmol/L (136-145)
[2025-10-13 04:46] LABS: Hematocrit 31.0 % (42.0-52.0); Hemoglobin 9.7 g/dL (14.0-18.0); Mean Corpuscular Hemoglobin 28.3 pg (27.0-31.0); Mean Corpuscular Volume 90.4 fL (78.0-98.0); Platelet Count 104 10x3/uL (130-400); Red Blood Cell (RBC) Count 3.43 mill/uL (4.70-6.10); White Blood Cell (WBC) Count 4.41 10x3/uL (4.8-10.8)
[2025-10-13 05:35] LABS: Anisocytosis SLIGHT = 6-15 cells HPF (0-5); Nucleated RBC (Manual Ct) 2 % (0); Platelet Adequacy Comment Platelets Decreased; Target Cells SLIGHT = 2-5 cells HPF (0-1)
[2025-10-13] MEDS: Fluconazole 100 MG TAB PO SCH (09:29)
[2025-10-13] MEDS: diphenhydrAMINE 25 MG CAP PO SCH (20:55)
[2025-10-14] MEDS: Furosemide 20 MG (2 mL) VIAL SLOW IVP SCH (03:52)
[2025-10-14 04:43] LABS: Hematocrit 29.6 % (42.0-52.0); Hemoglobin 9.4 g/dL (14.0-18.0); Mean Corpuscular Hemoglobin 28.6 pg (27.0-31.0); Mean Corpuscular Volume 90.0 fL (78.0-98.0); Platelet Count 110 10x3/uL (130-400); Red Blood Cell (RBC) Count 3.29 mill/uL (4.70-6.10); White Blood Cell (WBC) Count 3.94 10x3/uL (4.8-10.8)
[2025-10-14 04:49] LABS: Anion Gap 12 mmol/L (10-20); BUN (Urea Nitrogen) 16 mg/dL (8.4-25.7); Calc. Creatinine Clearance 84 mL/min (70-130); Calcium 8.7 mg/dL (7.8-10.44); Carbon Dioxide 23 mmol/L (23-31); Chloride 113 mmol/L (98-107); Glucose 111 mg/dL (83-110); Potassium 4.1 mmol/L (3.5-5.1); Sodium 144 mmol/L (136-145); Vancomycin, Random 14.2 ug/mL (See Comment)
[2025-10-14 05:29] LABS: Burr Cells SLIGHT = 2-5 cells HPF (0-1); Nucleated RBC (Manual Ct) 1 % (0); Platelet Adequacy Comment Platelets Decreased; Smudge Cells 31.1 %
[2025-10-14] MEDS: Melatonin 3 MG TAB PO SCH (07:27)
[2025-10-14] MEDS: Carvedilol 25 MG TAB PO SCH (09:20)
[2025-10-14] MEDS: Furosemide 40 MG (4 mL) VIAL SLOW IVP SCH (11:28)
[2025-10-14] MEDS: Vancomycin 1 GM in Premix 1 BAG IVPB SCH (21:39)
[2025-10-15] MEDS: diphenhydrAMINE 25 MG CAP PO SCH (00:51)
[2025-10-15 05:50] LABS: Hematocrit 30.7 % (42.0-52.0); Hemoglobin 9.7 g/dL (14.0-18.0); Mean Corpuscular Hemoglobin 28.4 pg (27.0-31.0); Mean Corpuscular Volume 89.8 fL (78.0-98.0); Platelet Count 98 10x3/uL (130-400); Red Blood Cell (RBC) Count 3.42 mill/uL (4.70-6.10); White Blood Cell (WBC) Count 2.88 10x3/uL (4.8-10.8)
[2025-10-15 05:58] LABS: ALT (SGPT) 21 U/L (Less than 45); AST (SGOT) 49 U/L (11-34); Albumin 2.9 g/dL (3.1-4.5); Alkaline Phosphatase 114 U/L (40-110); Anion Gap 14 mmol/L (10-20); BUN (Urea Nitrogen) 20 mg/dL (8.4-25.7); Bilirubin, Total 0.6 mg/dL (0.3-1.2); Calc. Creatinine Clearance 75 mL/min (70-130); Calcium 8.9 mg/dL (7.8-10.44); Carbon Dioxide 26 mmol/L (23-31); Chloride 111 mmol/L (98-107); Globulin 3.3 g/dL (2.4-3.5); Glucose 119 mg/dL (83-110); Potassium 4.3 mmol/L (3.5-5.1); Sodium 147 mmol/L (136-145)
[2025-10-15 06:23] LABS: Anisocytosis SLIGHT = 6-15 cells HPF (0-5); Nucleated RBC (Manual Ct) 1 % (0); Platelet Adequacy Comment Platelets Decreased; Poikilocytosis MODERATE=16-30 cells HPF (0-5)
[2025-10-15] MEDS: Melatonin 3 MG TAB PO SCH (21:16)
[2025-10-16 04:02] LABS: Hematocrit 28.4 % (42.0-52.0); Hemoglobin 9.2 g/dL (14.0-18.0); Mean Corpuscular Hemoglobin 29.0 pg (27.0-31.0); Mean Corpuscular Volume 89.6 fL (78.0-98.0); Platelet Count 94 10x3/uL (130-400); Red Blood Cell (RBC) Count 3.17 mill/uL (4.70-6.10); White Blood Cell (WBC) Count 2.71 10x3/uL (4.8-10.8)
[2025-10-16 04:08] LABS: Vancomycin, Random 26.8 ug/mL (See Comment)
[2025-10-16 04:16] LABS: ALT (SGPT) 23 U/L (Less than 45); AST (SGOT) 53 U/L (11-34); Albumin 2.9 g/dL (3.1-4.5); Alkaline Phosphatase 108 U/L (40-110); Anion Gap 14 mmol/L (10-20); BUN (Urea Nitrogen) 26 mg/dL (8.4-25.7); Bilirubin, Total 0.6 mg/dL (0.3-1.2); Calc. Creatinine Clearance 76 mL/min (70-130); Calcium 8.8 mg/dL (7.8-10.44); Carbon Dioxide 25 mmol/L (23-31); Chloride 112 mmol/L (98-107); Globulin 2.9 g/dL (2.4-3.5); Glucose 107 mg/dL (83-110); Potassium 4.0 mmol/L (3.5-5.1); Sodium 147 mmol/L (136-145)
[2025-10-16 04:40] LABS: Nucleated RBC (Manual Ct) 1 % (0); Platelet Adequacy Comment Platelets Decreased; RBC Morphology Within Normal Limits; Smudge Cells 32.4 %
[2025-10-16 12:31] LABS: Anion Gap 13 mmol/L (10-20); BUN (Urea Nitrogen) 26 mg/dL (8.4-25.7); Calc. Creatinine Clearance 79 mL/min (70-130); Carbon Dioxide 24 mmol/L (23-31); Chloride 110 mmol/L (98-107); Potassium 3.7 mmol/L (3.5-5.1); Sodium 143 mmol/L (136-145)
[2025-10-16 12:32] LABS: Calcium 8.6 mg/dL (7.8-10.44); Glucose 152 mg/dL (83-110)
[2025-10-16] MEDS: Acyclovir Sodium 750 MG in Sodium Chloride 0.9% 250 ML 250 ML IVPB SCH (22:31)
[2025-10-17 05:39] LABS: Hematocrit 27.1 % (42.0-52.0); Hemoglobin 8.5 g/dL (14.0-18.0); Mean Corpuscular Hemoglobin 28.2 pg (27.0-31.0); Mean Corpuscular Volume 90.0 fL (78.0-98.0); Platelet Count 88 10x3/uL (130-400); Red Blood Cell (RBC) Count 3.01 mill/uL (4.70-6.10); White Blood Cell (WBC) Count 2.89 10x3/uL (4.8-10.8)
[2025-10-17 05:40] LABS: INR-International Normal Ratio 3.5; Prothrombin Time 35.1 sec (12.0-14.7)
[2025-10-17 05:57] LABS: ALT (SGPT) 29 U/L (Less than 45); AST (SGOT) 68 U/L (11-34); Albumin 2.9 g/dL (3.1-4.5); Alkaline Phosphatase 109 U/L (40-110); Anion Gap 15 mmol/L (10-20); BUN (Urea Nitrogen) 27 mg/dL (8.4-25.7); Bilirubin, Total 0.6 mg/dL (0.3-1.2); Calc. Creatinine Clearance 78 mL/min (70-130); Calcium 8.4 mg/dL (7.8-10.44); Carbon Dioxide 24 mmol/L (23-31); Chloride 109 mmol/L (98-107); Globulin 3.1 g/dL (2.4-3.5); Glucose 121 mg/dL (83-110); Potassium 3.6 mmol/L (3.5-5.1); Sodium 144 mmol/L (136-145)
[2025-10-17 06:06] LABS: HIV (1/2) Antibody/Antigen NONREACTIVE (NonReactive); HIV 1/2 INDEX 0.07 S/CO (<1.00)
[2025-10-17 06:28] LABS: PTT Greater than 250.0 sec (22.9-36.1)
[2025-10-17 06:44] LABS: Anisocytosis MODERATE=16-30 cells HPF (0-5); Macrocytosis SLIGHT = 6-15 cells HPF (0-5); Platelet Adequacy Comment Platelets Decreased; Polychromasia SLIGHT = 2-3 cells HPF (0-2); Smudge Cells 22.1 %
[2025-10-17 16:00] VITALS: BMI 23.3
[2025-10-18] MEDS: Acetaminophen 325 MG TAB PO PRN (02:44)
[2025-10-18 07:19] LABS: Hematocrit 30.4 % (42.0-52.0); Hemoglobin 9.7 g/dL (14.0-18.0); Mean Corpuscular Hemoglobin 28.3 pg (27.0-31.0); Mean Corpuscular Volume 88.6 fL (78.0-98.0); Platelet Count 91 10x3/uL (130-400); Red Blood Cell (RBC) Count 3.43 mill/uL (4.70-6.10); White Blood Cell (WBC) Count 4.11 10x3/uL (4.8-10.8)
[2025-10-18 07:37] LABS: ALT (SGPT) 34 U/L (Less than 45); AST (SGOT) 61 U/L (11-34); Albumin 3.1 g/dL (3.1-4.5); Alkaline Phosphatase 118 U/L (40-110); Anion Gap 15 mmol/L (10-20); BUN (Urea Nitrogen) 26 mg/dL (8.4-25.7); Bilirubin, Total 0.7 mg/dL (0.3-1.2); Calc. Creatinine Clearance 61 mL/min (70-130); Calcium 8.7 mg/dL (7.8-10.44); Carbon Dioxide 22 mmol/L (23-31); Chloride 113 mmol/L (98-107); Globulin 3.6 g/dL (2.4-3.5); Glucose 124 mg/dL (83-110); Potassium 3.7 mmol/L (3.5-5.1); Sodium 146 mmol/L (136-145)
[2025-10-18 07:45] LABS: #Basophils Less than 0.03 10x3/uL (0.0-0.2); #Eosinophils Less than 0.03 10x3/uL (0.0-0.7); #Monocytes 1.18 10x3/uL (0.11-0.59); #Neutrophils 1.84 10x3/uL (1.40-6.50); %Basophils 0.2 % (0.0-1.0); %Eosinophils 0.5 % (0.0-10.0); %Lymphocytes 25.5 % (21.0-51.0); %Monocytes 28.4 % (0.0-10.0); %Neutrophils 44.5 % (42.0-75.0); Anisocytosis MARKED = >30 cells HPF (0-5); Macrocytosis MODERATE=16-30 cells HPF (0-5); Ovalocytes SLIGHT = 2-5 cells HPF (0-1); Platelet Adequacy Comment Platelets Decreased; Polychromasia SLIGHT = 2-3 cells HPF (0-2)
[2025-10-18] MEDS: HYDROcodone/Acetaminophen 5/325 mg Tablet PO PRN (12:10)
[2025-10-19 10:17] LABS: ALT (SGPT) 31 U/L (Less than 45); AST (SGOT) 64 U/L (11-34); Albumin 2.9 g/dL (3.1-4.5); Alkaline Phosphatase 104 U/L (40-110); Anion Gap 14 mmol/L (10-20); BUN (Urea Nitrogen) 31 mg/dL (8.4-25.7); Bilirubin, Total 0.6 mg/dL (0.3-1.2); Calc. Creatinine Clearance 36 mL/min (70-130); Calcium 8.4 mg/dL (7.8-10.44); Carbon Dioxide 23 mmol/L (23-31); Chloride 111 mmol/L (98-107); Globulin 3.2 g/dL (2.4-3.5); Glucose 125 mg/dL (83-110); Potassium 3.6 mmol/L (3.5-5.1); Sodium 144 mmol/L (136-145)
[2025-10-19 10:50] LABS: Hematocrit 25.4 % (42.0-52.0); Hemoglobin 8.4 g/dL (14.0-18.0); Mean Corpuscular Hemoglobin 29.1 pg (27.0-31.0); Mean Corpuscular Volume 87.9 fL (78.0-98.0); Platelet Count 86 10x3/uL (130-400); Red Blood Cell (RBC) Count 2.89 mill/uL (4.70-6.10); White Blood Cell (WBC) Count 3.70 10x3/uL (4.8-10.8)
[2025-10-19] MEDS: QUEtiapine 25 MG TAB PO SCH ×2 (11:09→23:03)
[2025-10-19 11:20] LABS: Anisocytosis SLIGHT = 6-15 cells HPF (0-5); Giant Platelets 1.0 % (0-5); Macrocytosis SLIGHT = 6-15 cells HPF (0-5); Ovalocytes SLIGHT = 2-5 cells HPF (0-1); Platelet Adequacy Comment Platelets Decreased; Smudge Cells 32.7 %
[2025-10-19 12:50] LABS: INR-International Normal Ratio 1.5; Prothrombin Time 18.4 sec (12.0-14.7)
[2025-10-19 12:51] LABS: PTT 47.6 sec (22.9-36.1)
[2025-10-20 04:34] LABS: ALT (SGPT) 31 U/L (Less than 45); AST (SGOT) 63 U/L (11-34); Albumin 2.9 g/dL (3.1-4.5); Alkaline Phosphatase 102 U/L (40-110); Anion Gap 11 mmol/L (10-20); BUN (Urea Nitrogen) 31 mg/dL (8.4-25.7); Bilirubin, Total 0.7 mg/dL (0.3-1.2); Calc. Creatinine Clearance 33 mL/min (70-130); Calcium 8.3 mg/dL (7.8-10.44); Carbon Dioxide 24 mmol/L (23-31); Chloride 111 mmol/L (98-107); Globulin 3.3 g/dL (2.4-3.5); Glucose 125 mg/dL (83-110); Potassium 3.5 mmol/L (3.5-5.1); Sodium 142 mmol/L (136-145)
[2025-10-20 05:01] LABS: #Basophils Less than 0.03 10x3/uL (0.0-0.2); #Eosinophils 0.03 10x3/uL (0.0-0.7); #Monocytes 1.03 10x3/uL (0.11-0.59); #Neutrophils 1.32 10x3/uL (1.40-6.50); %Basophils 0.3 % (0.0-1.0); %Eosinophils 0.9 % (0.0-10.0); %Lymphocytes 30.2 % (21.0-51.0); %Monocytes 29.6 % (0.0-10.0); %Neutrophils 37.9 % (42.0-75.0); Hematocrit 27.8 % (42.0-52.0); Hemoglobin 9.0 g/dL (14.0-18.0); Mean Corpuscular Hemoglobin 28.2 pg (27.0-31.0); Mean Corpuscular Volume 87.1 fL (78.0-98.0); Platelet Count 87 10x3/uL (130-400); Red Blood Cell (RBC) Count 3.19 mill/uL (4.70-6.10); White Blood Cell (WBC) Count 3.48 10x3/uL (4.8-10.8)
[2025-10-20] MEDS ORDERED: Bisacodyl 10 MG SUPP PR PRN (18:01)
[2025-10-20] MEDS: QUEtiapine 25 MG TAB PO SCH (22:46)
[2025-10-21 04:25] LABS: ALT (SGPT) 30 U/L (Less than 45); AST (SGOT) 55 U/L (11-34); Albumin 2.7 g/dL (3.1-4.5); Alkaline Phosphatase 100 U/L (40-110); Anion Gap 11 mmol/L (10-20); BUN (Urea Nitrogen) 26 mg/dL (8.4-25.7); Bilirubin, Total 0.6 mg/dL (0.3-1.2); Calc. Creatinine Clearance 35 mL/min (70-130); Calcium 8.3 mg/dL (7.8-10.44); Carbon Dioxide 22 mmol/L (23-31); Chloride 110 mmol/L (98-107); Globulin 3.2 g/dL (2.4-3.5); Glucose 109 mg/dL (83-110); Potassium 3.4 mmol/L (3.5-5.1); Sodium 140 mmol/L (136-145)
[2025-10-21 04:28] LABS: Hematocrit 26.8 % (42.0-52.0); Hemoglobin 9.0 g/dL (14.0-18.0); Mean Corpuscular Hemoglobin 28.6 pg (27.0-31.0); Mean Corpuscular Volume 85.1 fL (78.0-98.0); Platelet Count 84 10x3/uL (130-400); Red Blood Cell (RBC) Count 3.15 mill/uL (4.70-6.10); White Blood Cell (WBC) Count 3.80 10x3/uL (4.8-10.8)
[2025-10-21 06:28] LABS: Anisocytosis MODERATE=16-30 cells HPF (0-5); Ovalocytes SLIGHT = 2-5 cells HPF (0-1); Platelet Adequacy Comment Platelets Decreased; Smudge Cells 28.7 %
[2025-10-21] MEDS: Famotidine 20 MG TAB PO SCH (12:45)
[2025-10-22 05:18] LABS: Hematocrit 25.4 % (42.0-52.0); Hemoglobin 8.5 g/dL (14.0-18.0); Mean Corpuscular Hemoglobin 28.5 pg (27.0-31.0); Mean Corpuscular Volume 85.2 fL (78.0-98.0); Platelet Count 64 10x3/uL (130-400); Red Blood Cell (RBC) Count 2.98 mill/uL (4.70-6.10); White Blood Cell (WBC) Count 3.81 10x3/uL (4.8-10.8)
[2025-10-22 05:49] LABS: Platelet Adequacy Comment Platelets Decreased; RBC Morphology Within Normal Limits; Smudge Cells 22.1 %
[2025-10-22] MEDS: Clotrimazole 1 % Cream 30 GM TUBE TOP SCH (21:07)
[2025-10-23 12:39] LABS: Anion Gap 9 mmol/L (10-20); BUN (Urea Nitrogen) 22 mg/dL (8.4-25.7); Calc. Creatinine Clearance 44 mL/min (70-130); Calcium 8.1 mg/dL (7.8-10.44); Carbon Dioxide 25 mmol/L (23-31); Chloride 105 mmol/L (98-107); Glucose 137 mg/dL (83-110); Potassium 3.0 mmol/L (3.5-5.1); Sodium 136 mmol/L (136-145)
[2025-10-23 20:18] LABS: Potassium 3.5 mmol/L (3.5-5.1)
[2025-10-24 04:50] LABS: Anion Gap 12 mmol/L (10-20); BUN (Urea Nitrogen) 25 mg/dL (8.4-25.7); Calc. Creatinine Clearance 50 mL/min (70-130); Calcium 8.1 mg/dL (7.8-10.44); Carbon Dioxide 24 mmol/L (23-31); Chloride 108 mmol/L (98-107); Glucose 93 mg/dL (83-110); Potassium 3.8 mmol/L (3.5-5.1); Sodium 140 mmol/L (136-145)
[2025-10-24] MEDS: Losartan 25 MG TAB PO SCH (22:06)
[2025-10-25 04:25] LABS: Anion Gap 15 mmol/L (10-20); BUN (Urea Nitrogen) 22 mg/dL (8.4-25.7); Calc. Creatinine Clearance 60 mL/min (70-130); Calcium 8.2 mg/dL (7.8-10.44); Carbon Dioxide 23 mmol/L (23-31); Chloride 107 mmol/L (98-107); Glucose 105 mg/dL (83-110); Potassium 3.6 mmol/L (3.5-5.1); Sodium 141 mmol/L (136-145)
[2025-10-25 15:55] VITALS: BP 104/51; TEMP 97.8
== END 2025-10-25 17:01 | DRG 871 ==
LOC: ERS 21:29 → PCU 10-11 02:19
PROVIDERS: ADMIT Student in an Organized Health Care Education/Training Program; ATTEND Hospitalist
DX: A41.9 Sepsis, unspecified organism (principal); G93.41 Metabolic encephalopathy; E87.20 Acidosis, unspecified; L03.116 Cellulitis of left lower limb; E87.0 Hyperosmolality and hypernatremia; I48.20 Chronic atrial fibrillation, unspecified; N17.9 Acute kidney failure, unspecified; I49.5 Sick sinus syndrome; Z95.0 Presence of cardiac pacemaker; Z88.8 Allergy status to other drugs, medicaments and biological substances; Z88.0 Allergy status to penicillin; Z88.5 Allergy status to narcotic agent; E78.5 Hyperlipidemia, unspecified; I25.10 Atherosclerotic heart disease of native coronary artery without angina pectoris; Z95.5 Presence of coronary angioplasty implant and graft; Z85.46 Personal history of malignant neoplasm of prostate; I10 Essential (primary) hypertension; Z98.890 Other specified postprocedural states; E87.6 Hypokalemia; D64.9 Anemia, unspecified; D69.6 Thrombocytopenia, unspecified; Z96.652 Presence of left artificial knee joint; Z85.831 Personal history of malignant neoplasm of soft tissue; E11.51 Type 2 diabetes mellitus with diabetic peripheral angiopathy without gangrene; K59.00 Constipation, unspecified; R13.12 Dysphagia, oropharyngeal phase; Z79.82 Long term (current) use of aspirin; Z79.899 Other long term (current) drug therapy
CPT/HCPCS: 36415; 36416; 70450; 71045; 74018; 74176; 74230; 80048; 80053; 80202; 81001; 82550; 83036; 83605; 83735; 83880; 84145; 84484; 85025; 85060; 85610; 85730; 86141; 87040; 87081; 87389; 87637; 93005; 93923; 96365; 96375; 97139; J0133; J1650; J1815; J1940; J2185; J3373; J3475; J3486; J7050; J7070; J7120; Q9967